=== PATIENT | female | born 1995 | race African-American/Black ===

== ENCOUNTER 2018-04-19 02:31 | Emergency (ER) | payer MEDICAID, MEDICARE ==
[~2018-04-19] VITALS: Ht 160 cm; Wt 99.8 kg
--- OUTSIDE RECORDS SUMMARY | 2018-04-19 02:34 | XMS REPORT | Clinical Summary ---
Author Author [facility] Address Unknown Phone Unavailable Care Team Providers [employer] Consultant Name Role Phone Meet Raines MD PCP Allergies Comments Active Allergy Reactions Severity Noted Date Throat swelling Tramadol Hives, Low 10/23/2016 Swelling, Rash Medications End Date Status Medication Sig Dispensed Refills Start Date Active ranitidine (ZANTAC) 150 Take 150 mg 0 MG tablet by mouth nightly. Active ferrous sulfate 325 (65 Take 325 mg 0 FE) MG tablet by mouth daily with breakfast. 06/10/2017 Discontinued NIFEdipine (PROCARDIA) 20 Take 1 120 capsule 0 MG capsule capsule (20 7 mg total) by mouth every 6 (six) hours for 30 days. 06/29/2017 HYDROcodone-acetaminophen Take 2 30 tablet 0 (NORCO) 7.5-325 mg per tablets by 8 tablet mouth every 6 (six) hours as needed for severe pain for up to 20 days. Max Daily Amount: 8 tablets 07/10/2017 ibuprofen (ADVIL,MOTRIN) Take 1 tablet 30 tablet 3 600 MG tablet (600 mg 8 total) by mouth every 6 (six) hours as needed for mild pain for up to 30 days. Active Problems Problem Noted Date Previous delivery affecting , antepartum 06/07/2017 Hyperemesis affecting , antepartum 12/01/2016 Pyelonephritis affecting in first trimester 12/01/2016 Occluded PICC line 11/30/2016 Hyperemesis gravidarum before end of 22 week gestation with dehydration 11/28/2016 12 weeks gestation of 11/28/2016 Pyelonephritis affecting 11/28/2016 Hyperemesis 11/22/2016 Pyelonephritis affecting in second trimester 11/16/2016 10 weeks gestation of 11/16/2016 Pyelonephritis 11/15/2016 state, incidental 02/27/2014 Resolved Problems Problem Noted Date Resolved Date 06/07/2017 06/07/2017 labor 05/08/2017 05/08/2017 Encounters Care Team Description Date Type Specialty Brigitte Fierro MD 06/07/2017 Anesthesia Obstetrics and Gynecology Event Karly Conner MD REPEAT SECTION 06/07/2017 Surgery Obstetrics and Gynecology Karly Conner MD 06/07/2017 Hospital Obstetrics and Gynecology - Encounter 06/10/2017 Karly Conner MD 06/07/2017 Documentation Obstetrics and Gynecology Karly Conner MD 05/27/2017 Hospital Obstetrics and Gynecology - Encounter 05/28/2017 Karly Conner MD 05/16/2017 Hospital Obstetrics and Gynecology Encounter Karly Conner MD state, incidental (Primary Dx) 05/12/2017 Hospital Obstetrics and Gynecology Encounter Karly Conner MD 05/10/2017 Hospital Obstetrics and Gynecology Encounter Karly Conner MD labor in third trimester without delivery (Primary Dx) 05/08/2017 Hospital Obstetrics and Gynecology - Encounter 05/10/2017 Karly Conner MD 05/07/2017 Hospital Obstetrics and Gynecology Encounter Keyla Urbina MD 05/07/2017 Documentation Obstetrics and Gynecology after 04/18/2017 Immunizations Name Dates Previously Given Next Due Tdap 06/07/2017 Social History Date Tobacco Use Types Packs/Day Years Used Never Smoker Smokeless Tobacco: Never Used Tobacco Cessation: Counseling Given: No Alcohol Use Drinks/Week oz/Week Comments No Sex Assigned at Date Recorded Not on file Industry Job Start Date Occupation Not on file Not on file Not on file Travel End Travel History Travel Start No recent travel history available. Last Filed Vital Signs Time Taken Vital Sign Reading 06/09/2017 8:32 PM ELECTRIC FURNACE OPERATOR Blood Pressure 123/75 06/09/2017 8:32 PM ELECTRIC FURNACE OPERATOR Pulse 94 06/09/2017 8:32 PM ELECTRIC FURNACE OPERATOR Temperature 36.2 C (97.1 F) 06/10/2017 7:21 AM ELECTRIC FURNACE OPERATOR Respiratory Rate 20 06/09/2017 8:32 PM ELECTRIC FURNACE OPERATOR Oxygen Saturation 99% - Inhaled Oxygen - Concentration 06/07/2017 10:10 AM ELECTRIC FURNACE OPERATOR Weight 107 kg (236 lb) 06/07/2017 10:10 AM ELECTRIC FURNACE OPERATOR Height 160 cm (5' 3") 06/07/2017 10:10 AM ELECTRIC FURNACE OPERATOR Body Mass Index 41.81 Plan of Treatment Health Maintenance Due Date Last Done Comments MMR VACCINES (1 of 1 - 1997 Standard series) VARICELLA VACCINES (1 of 2009 2 - 2-dose adolescent series) CHLAMYDIA SCREENING 2012 MENINGOCOCCAL VACCINE (1 2012 - 2-dose series) CERVICAL CANCER SCREENING 2017 INFLUENZA VACCINE 12/19/2017 HEPATITIS B VACCINES Aged Out No longer eligible based on patient's age to complete this topic IPV VACCINES Aged Out No longer eligible based on patient's age to complete this topic Procedures Comments Procedure Name Priority Date/Time Associated Diagnosis MANUAL DIFFERENTIAL STAT 06/08/2017 7:24 AM ELECTRIC FURNACE OPERATOR CBC WITH PLATELET AND STAT 06/08/2017 DIFFERENTIAL 7:24 AM ELECTRIC FURNACE OPERATOR ANESTHESIA SPINAL BLOCK Routine 06/07/2017 1:50 PM ELECTRIC FURNACE OPERATOR Procedure Note - Medina Olvera MD - 06/07/2017 1:11 PM ELECTRIC FURNACE OPERATOR Spinal Block Performed by: MEDINA OLVERA Authorized by: MEDINA OLVERA Start Time: 06/07/2017 1:06 PM End Time: 06/07/2017 1:33 PM Reason for Block: primary anesthetic Staff: Anesthesio logist: MEDINA OLVERA Performed by: Anesthesio logist patient identified , IV checked, site and side verified, risks and benefits discussed, procedure verified, surgical consent complete, patient position confirmed, monitors and equipment checked and pre-op evaluation complete TIme Out Performed: 06/07/2017 1:07 PM Spinal Block: Patient Position: Sitting Prep: Betadine and patient draped Monitoring : Blood pressure monitoring , continuous pulse oximetry and heart rate Approach: Midline Interspace : L3-4 Injection Technique: Single injection Needle: Needle type: pencan. Needle Gauge: 25 G Assessment : Coagulatio n status: Coagulatio n status verified Block assessment : No apparent complicati ons and patient tolerated procedure well Post procedure: Patient returned to supine position with left lateral displaceme nt DELIVERY, 06/07/2017 Encounter for supervision 12:30 PM ELECTRIC FURNACE OPERATOR of high risk in second trimester, antepartum Special Needs DUE DATE: 06/14/16GBS : NEGG/P: 3/2WKS: 32/5 SMEAR REVIEW STAT 06/07/2017 10:46 AM ELECTRIC FURNACE OPERATOR ZZESTIMATED GFR STAT 06/07/2017 10:46 AM ELECTRIC FURNACE OPERATOR URIC ACID LEVEL STAT 06/07/2017 10:46 AM ELECTRIC FURNACE OPERATOR FIBRINOGEN STAT 06/07/2017 10:46 AM ELECTRIC FURNACE OPERATOR PARTIAL THROMBOPLASTIN STAT 06/07/2017 TIME (PTT) 10:46 AM ELECTRIC FURNACE OPERATOR PROTHROMBIN TIME WITH INR STAT 06/07/2017 10:46 AM ELECTRIC FURNACE OPERATOR COMPREHENSIVE METABOLIC STAT 06/07/2017 PANEL 10:46 AM ELECTRIC FURNACE OPERATOR HIV 1, 2 ANTIBODY STAT 06/07/2017 10:46 AM ELECTRIC FURNACE OPERATOR TYPE AND SCREEN, STAT 06/07/2017 OBSTETRICAL PATIENT 10:46 AM ELECTRIC FURNACE OPERATOR SYPHILIS TREPONEMAL IGG STAT 06/07/2017 10:46 AM ELECTRIC FURNACE OPERATOR HEPATITIS B SURFACE STAT 06/07/2017 ANTIGEN 10:46 AM ELECTRIC FURNACE OPERATOR HC COMPLETE BLD COUNT STAT 06/07/2017 W/AUTO DIFF 10:46 AM ELECTRIC FURNACE OPERATOR URINALYSIS SCREEN AND STAT 06/07/2017 MICROSCOPY, WITH REFLEX 10:09 AM ELECTRIC FURNACE OPERATOR TO CULTURE GRAM STAIN STAT 06/07/2017 10:09 AM ELECTRIC FURNACE OPERATOR URINE CULTURE STAT 06/07/2017 10:09 AM ELECTRIC FURNACE OPERATOR AMNISURE Routine 05/28/2017 1:08 AM ELECTRIC FURNACE OPERATOR US BIOPHYSICAL STAT 05/28/2017 PROFILE 12:59 AM ELECTRIC FURNACE OPERATOR BETA STREP SCREEN CULTURE Routine 05/17/2017 WITH WOODRUFF BROTH AMNISURE Routine 05/16/2017 2:50 PM ELECTRIC FURNACE OPERATOR MAGNESIUM, THERAPEUTIC Timed 05/09/2017 11:45 AM ELECTRIC FURNACE OPERATOR MAGNESIUM, THERAPEUTIC Timed 05/09/2017 6:11 AM ELECTRIC FURNACE OPERATOR MAGNESIUM, THERAPEUTIC Timed 05/08/2017 11:28 PM ELECTRIC FURNACE OPERATOR MAGNESIUM, THERAPEUTIC STAT 05/08/2017 6:24 PM ELECTRIC FURNACE OPERATOR AMNISURE Routine 05/08/2017 1:20 PM ELECTRIC FURNACE OPERATOR US LIMITED STAT 05/08/2017 12:20 PM ELECTRIC FURNACE OPERATOR SMEAR REVIEW Routine 05/08/2017 11:30 AM ELECTRIC FURNACE OPERATOR ZZESTIMATED GFR Routine 05/08/2017 11:30 AM ELECTRIC FURNACE OPERATOR URIC ACID LEVEL Routine 05/08/2017 11:30 AM ELECTRIC FURNACE OPERATOR FIBRINOGEN Routine 05/08/2017 11:30 AM ELECTRIC FURNACE OPERATOR PARTIAL THROMBOPLASTIN Routine 05/08/2017 TIME (PTT) 11:30 AM ELECTRIC FURNACE OPERATOR PROTHROMBIN TIME WITH INR Routine 05/08/2017 11:30 AM ELECTRIC FURNACE OPERATOR COMPREHENSIVE METABOLIC Routine 05/08/2017 PANEL 11:30 AM ELECTRIC FURNACE OPERATOR HC COMPLETE BLD COUNT Routine 05/08/2017 W/AUTO DIFF 11:30 AM ELECTRIC FURNACE OPERATOR TYPE AND SCREEN, Routine 05/08/2017 OBSTETRICAL PATIENT 11:30 AM ELECTRIC FURNACE OPERATOR URINE DRUGS OF ABUSE STAT 05/08/2017 SCREEN 11:15 AM ELECTRIC FURNACE OPERATOR URINALYSIS SCREEN AND Routine 05/08/2017 MICROSCOPY, WITH REFLEX 11:15 AM ELECTRIC FURNACE OPERATOR TO CULTURE GRAM STAIN Routine 05/08/2017 11:15 AM ELECTRIC FURNACE OPERATOR URINE CULTURE Routine 05/08/2017 11:15 AM ELECTRIC FURNACE OPERATOR after 04/18/2017 Results * Manual differential (06/08/2017 7:24 AM ELECTRIC FURNACE OPERATOR) Manual differential PERFORMED [facility]IC[facility] Neutrophils 92.0 (H) 36.0 - 66.0 % [facility] MEDICINE Lymphocytes 5.0 (L) 24.0 - 44.0 % [facility]OMIC MEDICINE Monocytes 2.0 0.0 - 6.0 % [facility] AND GENOMIC MEDICINE Eosinophils 1.0 0.0 - 6.0 % [facility]IC MEDICINE Basophils 0.0 0.0 - 1.2 % [facility] AND [facility]OMIC MEDICINE Metamyelocytes 0 0 - 1 % [facility]IC [facility] Promyelocytes 0 0 - 1 % [facility] Platelet slide review Negar adequate [facility] AND [facility]INE Anisocytosis Moderate [facility] AND [facility]OMIC MEDICINE Polychromasia Slight [facility] PATHOLOGY AND GENOMIC MEDICINE Tear drop cells Rare [facility] AND GENOMIC MEDICINE Schistocytes Rare [facility] AND GENOMIC MEDICINE Ovalocytes Moderate [facility]OLOGY AND GENOMIC MEDICINE Performing Organization Address City/State/Zipcode Phone Number [place] [address] [place] [address] PATHOLOGY AND GENOMIC MEDICINE * CBC with platelet and differential (06/08/2017 7:24 AM ELECTRIC FURNACE OPERATOR) Only the most recent of 3 results within the time period is included. WBC 10.5 4.2 - 11.0 k/uL [facility]IC MEDICINE RBC 3.38 (L) 4.04 - 5.86 m/uL [facility]OMIC MEDICINE HGB 6.0 (LL) 11.5 - 15.3 g/dL [facility] Comment: PATHOLOGY AND REPEAT HGB=6.0 GENOMIC MEDICINE Results called to and read back by KARIN BURGER OB at07:56006/08/2017 WEB HCT 21.0 (L) 34.0 - 45.0 % [facility]IC MEDICINE MCV 62.1 (L) 80.0 - 98.0 fL [facility]IC MEDICINE MCH 17.8 (L) 27.0 - 34.0 pg [facility] AND GENOMIC MEDICINE MCHC 28.6 (L) 31.5 - 36.5 g/dL [facility] AND GENOMIC MEDICINE RDW - SD 42.1 37.0 - 51.0 fL [facility]IC MEDICINE MPV 9.2 7.4 - 10.4 fL [facility] AND [facility]IC MEDICINE Platelet count 214 150 - 400 k/uL [facility]OMIC MEDICINE Nucleated RBC 0.00 /100 WBC [facility] AND GENOMIC MEDICINE Neutrophils 92.0 (H) 36.0 - 66.0 % [facility] AND GENOMIC MEDICINE Lymphocytes 5.0 (L) 24.0 - 44.0 % [facility] AND GENOMIC MEDICINE Monocytes 2.0 0.0 - 6.0 % [facility] AND GENOMIC MEDICINE Eosinophils 1.0 0.0 - 6.0 % [facility] AND GENOMIC MEDICINE Basophils 0.0 0.0 - 1.2 % [facility] AND GENOMIC MEDICINE Specimen Blood Performing Organization Address City/[facility] Phone Number [facility] [address] [place] [address] PATHOLOGY AND GENOMIC MEDICINE * Syphilis treponemal IgG (06/07/2017 10:46 AM ELECTRIC FURNACE OPERATOR) Syphilis treponemal IgG Non-reactiveComment: Non-reactive [facility] DEPARTMENT OF Non-reactive: No serological PATHOLOGY AND evidence of Syphilis infection GENOMIC [facility] Specimen Serum Performing Organization Address City/[facility] Hospital[facility] Phone Number [facility] [address] [place] [address] PATHOLOGY AND GENOMIC MEDICINE * Smear review (06/07/2017 10:46 AM ELECTRIC FURNACE OPERATOR) Only the most recent of 2 results within the time period is included. Platelet slide review Negar adequate [facility] AND GENOMIC MEDICINE Anisocytosis 2+ (A) [facility] AND GENOMIC MEDICINE Polychromasia 1+ [facility] AND GENOMIC MEDICINE Tear drop cells Occasional [facility] AND GENOMIC MEDICINE Schistocytes Occasional [facility]OLOG[facility] AND GENOMIC MEDICINE Ovalocytes 1+ [facility] AND GENOMIC MEDICINE Enlarged platelets 1+ [facility] AND GENOMIC MEDICINE Giant platelets Occasional [facility] AND GENOMIC MEDICINE Elliptocytes Occasional [facility] AND GENOMIC MEDICINE Toxic granulation Slight [facility] AND GENOMIC MEDICINE Performing Organization Address City/[facility] Hospital[facility] Phone Number [facility] [address] [place] [address] PATHOLOGY AND GENOMIC MEDICINE * Type and screen, obstetrical patient (06/07/2017 10:46 AM ELECTRIC FURNACE OPERATOR) Only the most recent of 2 results within the time period is included. ABO grouping O [facility] GENOMIC MEDICINE Rh type POS [facility] AND GENOMIC MEDICINE Antibody screen (gel) NEG [facility]OLOG[facility] AND GENOMIC MEDICINE Specimen Blood Performing Organization Address City/[facility] Hospitalcode Phone Number [place] [address] [place] [address] PATHOLOGY AND GENOMIC MEDICINE * Estimated GFR (06/07/2017 10:46 AM ELECTRIC FURNACE OPERATOR) Only the most recent of 2 results within the time period is included. GFR Non Af Amer >90 mL/min/1.73 m2 [facility] PATH[facility] AND GENOMIC MEDICINE GFR Af Amer >90 mL/min/1.73 m2 [facility] Comment: PATHOLOGY AND Chronic kidney disease: <60 GENOMIC MEDICINE mL/min/1.73m2 Kidney failure: <15 mL/min/1.73m2 The estimated GFR is calculated from the IDMS-traceable Modification of Diet in Renal Disease Equation. The accuracy of the calculation is poor when the creatinine is normal. Calculated values >90 mL/min/1.73m2 are not reported. This equation has not been validated in children (<18 years), women, the elderly (>70 years), or ethnic groups other than Caucasians and Americans. Specimen Plasma specimen Performing Organization Address City/[facility] Hospital[facility] Phone Number [facility] [address] [place] [address] [place] [address] PATHOLOGY AND [facility] * HIV 1, 2 antibody (06/07/2017 10:46 AM ELECTRIC FURNACE OPERATOR) HIV 1, 2 antibody Non-Reactive Non-reactive [facility] Comment: PATHOLOGY AND Starting from August 17 2015, [facility] 4th generation HIV screening and confirmation assays are in use at [facility], consistent with the CDC-recommended algorithm. The screening test detects antibodies to HIV-1, HIV-2 and the p24 antigen. Positive screening results will be automatically reflexed to a HIV-1/HIV-2 differentiation assay. Indeterminant HIV-1 results will be further automatically reflexed to a nucleic acid test for detection of acute infection. Western blot will no longer be performed as a confirmation test. For a quick reference guide on the testing algorithm, please refer to: http://stacks.cdc.gov/view/cdc /74749. Specimen Blood Performing Organization Address City/[facility] Hospitalcode [place] [address] PATHOLOGY AND GENOMIC MEDICINE * Hepatitis B surface antigen (06/07/2017 10:46 AM ELECTRIC FURNACE OPERATOR) Hepatitis B surface Ag Non-reactive Non-reactive [facility] PATHOLOGY AND [facility] Specimen Blood Performing Organization Address [facility] Hospitalcode [place] [address] PATHOLOGY AND [employer] [facility] * Partial thromboplastin time, activated (06/07/2017 10:46 AM ELECTRIC FURNACE OPERATOR) Only the most recent of 2 results within the time period is included. PTT 30.7 23.0 - 36.0 sec [facility] Comment: PATHOLOGY AND PTT therapeutic range for GENOMIC MEDICINE unfractionated heparin is 61.0-112.0 seconds which corresponds to Anti-Xa 0.3-0.7 U/ml. Note:Change in Panic Value The PTT Panic Value is changing from 110 sec. to 100 sec. due to new instrumentation and reagents. Correlation studies have been performed to validate this result. Specimen Blood Performing Organization Address [facility] [place] [address] PATHOLOGY AND [employer] [facility] * Prothrombin time with INR (06/07/2017 10:46 AM ELECTRIC FURNACE OPERATOR) Only the most recent of 2 results within the time period is included. Prothrombin time 14.4 12.0 - 15.0 sec [facility] PATHOLOGY AND [facility] INR 1.11 0.92 - 1.12 [facility] Comment: PATHOLOGY AND For patients on anticoagulant GENOMIC MEDICINE therapy, reference ranges below: Indication: INR Value Treatment of Venous Thrombosis, 2.0-3.0 pulmonary emboli, or prophylaxis of a venous thrombosis, or systemic emboli. High dose, high risk patients 3.0-4.5 with mechanical valves. NOTE:INR values over 3.0 are sometimes associated with gastrointestinal hemorrhage, especially values over 4.0. Specimen Blood Performing Organization Address [facility]/Zipcode Phone Number [place] [phone] [place] [address] PATHOLOGY AND GENOMIC MEDICINE * Fibrinogen (06/07/2017 10:46 AM ELECTRIC FURNACE OPERATOR) Only the most recent of 2 results within the time period is included. Fibrinogen 638 (H) 200 - 450 mg/dL [facility] PATHOLOGY AND GENOMIC MEDICINE Specimen Blood Performing Organization Address City/[facility]/Zipcode Phone Number [place] [address] [place] [address] PATHOLOGY AND [facility] * Uric acid level (06/07/2017 10:46 AM ELECTRIC FURNACE OPERATOR) Only the most recent of 2 results within the time period is included. Uric acid 3.5 2.4 - 5.1 mg/dL [facility] PATHOLOGY AND [facility] Specimen Plasma specimen Performing Organization Address City/[facility]code Phone Number [place] [address] [place] [address] PATHOLOGY AND [facility] * Comprehensive metabolic panel (06/07/2017 10:46 AM ELECTRIC FURNACE OPERATOR) Only the most recent of 2 results within the time period is included. Sodium 137 135 - 150 mEq/L [facility] AND GENOMIC MEDICINE Potassium 3.4 (L) 3.5 - 5.0 mEq/L [facility] PATHOLOGY AND GENOMIC MEDICINE Chloride 106 100 - 109 mEq/L [facility] PATHOLOGY AND GENOMIC MEDICINE CO2 21 (L) 24 - 32 mmol/L [facility] PATHOLOGY AND GENOMIC MEDICINE Anion gap 10 7 - 15 mEq/L [facility] Comment: PATHOLOGY AND Starting from August [facility] , anion gap calculation no longer incorporates potassium. Please note the change. BUN 7 7 - 18 mg/dL [facility] PATHOLOGY AND GENOMIC MEDICINE Creatinine 0.5 (L) 0.8 - 1.5 mg/dL [facility] PATHOLOGY AND GENOMIC MEDICINE Glucose 67 65 - 100 mg/dL [facility] PATHOLOGY AND GENOMIC MEDICINE Calcium 8.0 (L) 8.6 - 10.7 mg/dL [facility] PATHOLOGY AND GENOMIC MEDICINE Protein 6.2 (L) 6.3 - 8.2 g/dL [facility] PATHOLOGY AND GENOMIC MEDICINE Albumin 2.2 (L) 3.2 - 5.0 g/dL [facility] PATHOLOGY AND GENOMIC MEDICINE A/G ratio 0.6 (L) 0.7 - 3.8 [facility] PATHOLOGY AND GENOMIC MEDICINE Alkaline phosphatase 106 30 - 120 U/L [facility] PATHOLOGY AND GENOMIC MEDICINE AST 19 15 - 37 U/L [facility] PATHOLOGY AND GENOMIC MEDICINE ALT 12 (L) 30 - 65 U/L [facility] PATHOLOGY AND GENOMIC MEDICINE Total bilirubin 0.3 0.2 - 1.2 mg/dL [facility] PATHOLOGY AND GENOMIC MEDICINE Specimen Plasma specimen Performing Organization Address City/State/[facility] Hospital[facility] Phone Number [facility] [address] [place] [address] PATHOLOGY AND GENOMIC MEDICINE * Urinalysis screen and microscopy, with reflex to culture (06/07/2017 10:09 AM ELECTRIC FURNACE OPERATOR) Only the most recent of 2 results within the time period is included. Specimen site Clean catch [facility] PATHOLOGY AND GENOMIC MEDICINE Color, UA Debbie [facility] PATHOLOG[facility] AND GENOMIC MEDICINE Appearance, UA Cloudy [facility] PATHOLOGY AND GENOMIC MEDICINE Specific gravity, UA 1.026 1.001 - 1.035 [facility] PATHOLOGY AND GENOMIC MEDICINE pH, UA 5.0 5.0 - 8.5 [facility] PATHOLOGY AND GENOMIC MEDICINE Protein, UA 1+ (A) Negative [facility] PATHOLOGY AND GENOMIC MEDICINE Glucose, UA Negative Negative [facility] PATHOLOGY AND GENOMIC MEDICINE Ketones, UA Negative Negative [facility] PATHOLOGY AND GENOMIC MEDICINE Bilirubin, UA Negative Negative [facility] PATHOLOGY AND GENOMIC MEDICINE Blood, UA Negative Negative [facility] PATHOLOGY AND GENOMIC MEDICINE Nitrite, UA Negative Negative [facility] PATHOLOGY AND GENOMIC MEDICINE Urobilinogen, UA 2.0 (A) <2.0 [facility] PATHOLOGY AND GENOMIC MEDICINE Leukocyte esterase, UA Large (A) Negative [facility] PATHOLOGY AND GENOMIC MEDICINE Epithelial cells, UA Many /HPF [facility] DEPARTMENT OF PATHOLOGY AND GENOMIC MEDICINE WBC, UA 32 (H) 0 - 5 /HPF [facility]OLOGY AND GENOMIC MEDICINE RBC, UA 4 0 - 5 /HPF [facility] OF PATHOLOGY AND GENOMIC MEDICINE Bacteria, UA Trace None seen [facility] OF PATHOLOGY AND GENOMIC MEDICINE Yeast, UA None seen [facility] OF PATHOLOGY AND GENOMIC MEDICINE Yeast with pseudohyphae, None seen [facility] OF PATHOLOGY AND GENOMIC MEDICINE Hyaline casts, UA 2 /LPF [facility] DE[facility]MENT OF PATHOLOGY AND GENOMIC MEDICINE Specimen Urine Performing Organization Address City/[facility]/Zipcode Phone Number [facility] DEPARTMENT OF [address] [place] [address] PATHOLOGY AND GENOMIC MEDICINE * Gram stain (06/07/2017 10:09 AM ELECTRIC FURNACE OPERATOR) Only the most recent of 2 results within the time period is included. Gram stain result No WBC's [facility] DEPARTMENT OF Many Gram positive rods PATHOLOGY AND Comment: GENOMIC MEDICINE Specimen Information Specimen Source: Urine Specimen Site: Clean catch Specimen Urine Performing Organization Address [facility] Phone Number [facility] DEPARTMENT OF [address] [place] [address] PATHOLOGY AND GENOMIC MEDICINE * Urine culture (06/07/2017 10:09 AM ELECTRIC FURNACE OPERATOR) Only the most recent of 2 results within the time period is included. Urine culture isolate Mixed Gram positive mackenzie [facility] DEPARTMENT OF 10-2 cfu/ml PATHOLOGY AND (A) GENOMIC MEDICINE Comment: Specimen Information Specimen Source: Urine Specimen Site: Clean catch Specimen Urine Performing Organization Address [facility] Phone Number [facility] DEPARTMENT OF [address] [place] [address] PATHOLOGY AND GENOMIC MEDICINE * Amnisure (05/28/2017 1:08 AM ELECTRIC FURNACE OPERATOR) Only the most recent of 3 results within the time period is included. Amnisure, POC NEGATIVE [facility]MENT OF PATHOLOGY AND GENOMIC MEDICINE Specimen Amniotic fluid Performing Organization Address [facility] Phone Number [facility] [place] [address] [place] [address]. [place] [address] PATHOLOGY AND GENOMIC MEDICINE * US Biophysical Profile (05/28/2017 12:59 AM ELECTRIC FURNACE OPERATOR) Narrative Performed At EXAMINATION:US BIOPHYSICAL PROFILE [facility] CLINICAL HISTORY:pt c o leaking fluid varsha COMPARISON:None. TECHNIQUE: biophysical profile ultrasound was performed. Transabdominal images were obtained. FINDINGS: The biophysical profile score is 8/8. breathing, movement, and tone are identified. The amniotic fluid index is 12.52 cm. The largest pocket measures 4.2 cm in the right lower quadrant. heart rate is measured at 121.48 bpm. Umbilical cord peaks systolic end diastolic ratio is 2.3. The fetus is in cephalic presentation. The placenta is posterior in location. IMPRESSION: biophysical profile score is 8 out of a possible 8. [id number] Procedure Note Interface, Radiology Results Incoming - 05/28/2017 1:05 AM ELECTRIC FURNACE OPERATOR EXAMINATION: US BIOPHYSICAL PROFILE CLINICAL HISTORY: pt c o leaking fluid varsha COMPARISON: None. TECHNIQUE: biophysical profile ultrasound was performed. Transabdominal images were obtained. FINDINGS: The biophysical profile score is 8/8. breathing, movement, and tone are identified. The amniotic fluid index is 12.52 cm. The largest pocket measures 4.2 cm in the right lower quadrant. heart rate is measured at 121.48 bpm. Umbilical cord peaks systolic end diastolic ratio is 2.3. The fetus is in cephalic presentation. The placenta is posterior in location. IMPRESSION: biophysical profile score is 8 out of a possible 8. [facility]-[id number] Performing Organization Address City/[facility]/Zipcode Phone Number [facility] [address] [place] [address] * Beta strep screen culture with woodruff broth (05/17/2017) Strep gp B culture neg EXTERNAL LAB NON-INTERFACED Specimen Vaginal Performing Organization Address City/[facility] Phone Number EXTERNAL LAB NON-INTERFACED * Magnesium, therapeutic (05/09/2017 11:45 AM ELECTRIC FURNACE OPERATOR) Only the most recent of 4 results within the time period is included. Magnesium, therapeutic 6.5 4.5 - 7.9 [facility] OF PATHOLOGY AND GENOMIC MEDICINE Specimen Plasma specimen Performing Organization Address City/[facility] Phone Number [facility] DE[facility]MENT OF [address] [place] [id number] PATHOLOGY AND GENOMIC MEDICINE * US Limited (05/08/2017 12:20 PM ELECTRIC FURNACE OPERATOR) Narrative Performed At EXAMINATION:US LIMITED [facility] INDICATION:Premature labor. COMPARISON: 02/28/2017 IMPRESSION: 1.Single live uterine gestation with estimated gestational age of 36 weeks and 5 days by biometry. 2.Estimated weight of 3017 g or 6 lbs. 10 oz. within the 93rd percentile. 3. heart rate is 127 bpm, which is normal. 4.Systolic to diastolic ratio in the umbilical artery of 2.3. 5. presentation is cephalic. Placenta is fundal without evidence of a retroplacental hematoma. 6.Amniotic fluid index is appropriate measuring 10.9 cm. 7.Cervix is not well visualized. Procedure Note Interface, Radiology Results Incoming - 05/08/2017 12:36 PM ELECTRIC FURNACE OPERATOR EXAMINATION: US LIMITED INDICATION: Premature labor. COMPARISON: 02/28/2017 IMPRESSION: 1. Single live uterine gestation with estimated gestational age of 36 weeks and 5 days by biometry. 2. Estimated weight of 3017 g or 6 lbs. 10 oz. within the 93rd percentile. 3. heart rate is 127 bpm, which is normal. 4. Systolic to diastolic ratio in the umbilical artery of 2.3. 5. presentation is cephalic. Placenta is fundal without evidence of a retroplacental hematoma. 6. Amniotic fluid index is appropriate measuring 10.9 cm. 7. Cervix is not well visualized. Performing Organization Address City/[facility]/Zipcode Phone Number [facility] [address] [place] [address] * Urine drugs of abuse screen (05/08/2017 11:15 AM ELECTRIC FURNACE OPERATOR) Amphetamine screen, urine NEG [facility] DE[facility]MENT OF PATHOLOGY AND GENOMIC MEDICINE Barbiturate screen, urine NEG [facility] DE[facility]MENT OF PATHOLOGY AND GENOMIC MEDICINE Benzodiazepine screen, NEG [facility] DEPARTMENT OF urine PATHOLOGY AND GENOMIC MEDICINE Cocaine screen, urine NEG [facility]MENT OF PATHOLOGY AND GENOMIC MEDICINE Methadone screen, urine NEG [facility]MENT OF PATHOLOGY AND GENOMIC MEDICINE Opiates screen, urine NEG [facility] DE[facility]MENT OF PATHOLOGY AND GENOMIC MEDICINE Phencyclidine screen, NEG [facility] DEPARTMENT OF urine PATHOLOGY AND GENOMIC MEDICINE Cannabinoid screen, urine NEG [facility] DEPARTMENT OF Comment: PATHOLOGY AND Drug screen minimum GENOMIC MEDICINE concentration of detectability Amphetamines 1000 ng/mL Methamphetamines 1000 ng/mL Barbiturates 300 ng/mL Benzodiazepines 300 ng/mL Cocaine 300 ng/mL Methadone 300 ng/mL Opiates 300 ng/mL Phencyclidine 25 ng/mL Cannabinoids 50 ng/mL Tricyclics 1000 ng/mL Negative test results indicates presumptive evidence of lack of clinically significant drug concentration in this urine specimen. Positive test results are presumptive evidence of clinically significant drug concentration in this urine specimen. Testing performed for medical purposes only. Specimen Urine Performing Organization Address City/[facility]/Zipcode Phone Number [facility] DE[facility] [place] [address] [place] [address] PATHOLOGY AND GENOMIC MEDICINE after 04/18/2017 Insurance Payer Benefit Subscriber ID Type Phone Address Plan / Group [employer] [facility] xxxxxxxxx O [facility] Advance Directives Patient has advance care planning documents, and code status on file. For more i nformation, please contact: Jamey Hanson [address] [place] [address] Date Inactivated Comments Code Status Date Activated 05/16/2017 8:17 PM Full Code 05/16/2017 2:34 PM Code Status decision reached by: Patient 05/10/2017 9:01 PM Full Code 05/10/2017 4:36 PM Code Status decision reached by: Patient 05/07/2017 11:09 AM Full Code 05/07/2017 6:08 AM Code Status decision reached by: Patient 03/01/2017 1:09 AM Full Code 02/28/2017 7:27 PM Code Status decision reached by: Patient 02/26/2017 8:17 PM Full Code 02/26/2017 4:04 PM Code Status decision reached by: Patient
--- OUTSIDE RECORDS SUMMARY | 2018-04-19 02:34 | XMS REPORT ---
Author Author [facility] Address Unknown Phone Unavailable Care Team Providers Care Manager Tax Name Role Phone Unavailable Unavailable Problems This patient has no known problems. Allergies, Adverse Reactions, Alerts This patient has no known allergies or adverse reactions. Medications This patient has no known medications.
--- NOTE | 2018-04-19 03:45 | Diagnostic Imaging Report ---
EXAM: CT ABDOMEN AND PELVIS without IV CONTRAST INDICATION: Fall on area of prior hernia repair COMPARISON: None TECHNIQUE: The abdomen and pelvis were scanned using a multidetector helical scanner. Coronal and sagittal reformations were obtained. Dose modulation, iterative reconstruction, and/or weight based adjustment of the mA/kV was utilized to reduce the radiation dose to as low as reasonably achievable. Routine protocol performed. IV Contrast: None Oral Contrast: None CTDIvol has been reviewed. It is below the limits set by the Radiation Protocol Committee (RPC). FINDINGS: LOWER THORAX: No consolidations LIVER: No masses BILIARY: Cholecystectomy. No ductal dilation. SPLEEN: No masses PANCREAS: No masses ADRENALS: No nodules RIGHT KIDNEY: No nephroureterolithiasis or hydronephrosis. LEFT KIDNEY: No nephroureterolithiasis or hydronephrosis. GI TRACT: No wall thickening or obstruction. Appendix not visualized. VESSELS: Normal PERITONEUM/RETROPERITONEUM: Small amount of free pelvic fluid consistent with physiologic fluid. No free peritoneal air. LYMPH NODES: No lymphadenopathy REPRODUCTIVE ORGANS: Normal BLADDER: Decompressed SOFT TISSUES: Prior ventral hernia repair with mesh, now with large hernia centered just above the umbilicus. The hernia contains fat and portions of the distal ileum. The hernia sac measures 8.4 x 13 x 5 cm (sagittal x AP x transverse) and the defect neck is approximately 5.5 cm wide in sagittal plane and 3 cm in transverse plane. Mild fat stranding in the subcutaneous tissues around the hernia sac. BONES: No suspicious bone lesions. IMPRESSION: Prior midline ventral hernia repair with mesh, now with large complex supraumbilical hernia containing fat and small bowel. No evidence of bowel obstruction. Signed by: Dr. Petra Baptiste M.D. on 04/19/2018 3:42 AM
== END 2018-04-19 03:59 | disposition home or self-care (01) ==
LOC: FSED 02:31
DX: R10.33 Periumbilical pain (principal); D64.9 Anemia, unspecified
CPT/HCPCS: 74176; 81003; 81025; 99284

== ENCOUNTER 2018-04-23 23:31 | Inpatient (IN) | payer MEDICAID, MEDICARE ==
[~2018-04-23] VITALS: Ht 152.4 cm; Wt 104.0 kg
--- OUTSIDE RECORDS SUMMARY | 2018-04-23 23:34 | XMS REPORT | Clinical Summary ---
Author Author [employer] [facility] [employer] Address Unknown Phone Unavailable Care Team Providers [facility] Office Supervisor Name Role Phone Meet Raines MD PCP [...] MD 05/07/2017 Documentation Obstetrics and Gynecology after 04/22/2017 Immunizations Name Dates Previously Given Next Due [...] Taken Vital Sign Reading 06/09/2017 8:32 PM SALES AND LEASING CONSULTANT Blood Pressure 123/75 06/09/2017 8:32 PM SALES AND LEASING CONSULTANT Pulse 94 06/09/2017 8:32 PM SALES AND LEASING CONSULTANT Temperature 36.2 C (97.1 F) 06/10/2017 7:21 AM SALES AND LEASING CONSULTANT Respiratory Rate 20 06/09/2017 8:32 PM SALES AND LEASING CONSULTANT Oxygen Saturation 99% - Inhaled Oxygen - Concentration 06/07/2017 10:10 AM SALES AND LEASING CONSULTANT Weight 107 kg (236 lb) 06/07/2017 10:10 AM SALES AND LEASING CONSULTANT Height 160 cm (5' 3") 06/07/2017 10:10 AM SALES AND LEASING CONSULTANT Body Mass Index 41.81 Plan of Treatment [...] Diagnosis MANUAL DIFFERENTIAL STAT 06/08/2017 7:24 AM SALES AND LEASING CONSULTANT CBC WITH PLATELET AND STAT 06/08/2017 DIFFERENTIAL 7:24 AM SALES AND LEASING CONSULTANT ANESTHESIA SPINAL BLOCK Routine 06/07/2017 1:50 PM SALES AND LEASING CONSULTANT Procedure Note - Medina Olvera MD - 06/07/2017 1:11 PM SALES AND LEASING CONSULTANT Spinal Block Performed by: MEDINA OLVERA Authorized [...] DELIVERY, 06/07/2017 Encounter for supervision 12:30 PM SALES AND LEASING CONSULTANT of high risk in second trimester, antepartum Special Needs DUE DATE: 06/14/16GBS : NEGG/P: 3/2WKS: 32/5 SMEAR REVIEW STAT 06/07/2017 10:46 AM SALES AND LEASING CONSULTANT ZZESTIMATED GFR STAT 06/07/2017 10:46 AM SALES AND LEASING CONSULTANT URIC ACID LEVEL STAT 06/07/2017 10:46 AM SALES AND LEASING CONSULTANT FIBRINOGEN STAT 06/07/2017 10:46 AM SALES AND LEASING CONSULTANT PARTIAL THROMBOPLASTIN STAT 06/07/2017 TIME (PTT) 10:46 AM SALES AND LEASING CONSULTANT PROTHROMBIN TIME WITH INR STAT 06/07/2017 10:46 AM SALES AND LEASING CONSULTANT COMPREHENSIVE METABOLIC STAT 06/07/2017 PANEL 10:46 AM SALES AND LEASING CONSULTANT HIV 1, 2 ANTIBODY STAT 06/07/2017 10:46 AM SALES AND LEASING CONSULTANT TYPE AND SCREEN, STAT 06/07/2017 OBSTETRICAL PATIENT 10:46 AM SALES AND LEASING CONSULTANT SYPHILIS TREPONEMAL IGG STAT 06/07/2017 10:46 AM SALES AND LEASING CONSULTANT HEPATITIS B SURFACE STAT 06/07/2017 ANTIGEN 10:46 AM SALES AND LEASING CONSULTANT HC COMPLETE BLD COUNT STAT 06/07/2017 W/AUTO DIFF 10:46 AM SALES AND LEASING CONSULTANT URINALYSIS SCREEN AND STAT 06/07/2017 MICROSCOPY, WITH REFLEX 10:09 AM SALES AND LEASING CONSULTANT TO CULTURE GRAM STAIN STAT 06/07/2017 10:09 AM SALES AND LEASING CONSULTANT URINE CULTURE STAT 06/07/2017 10:09 AM SALES AND LEASING CONSULTANT AMNISURE Routine 05/28/2017 1:08 AM SALES AND LEASING CONSULTANT US BIOPHYSICAL STAT 05/28/2017 PROFILE 12:59 AM SALES AND LEASING CONSULTANT BETA STREP SCREEN CULTURE Routine 05/17/2017 WITH WOODRUFF BROTH AMNISURE Routine 05/16/2017 2:50 PM SALES AND LEASING CONSULTANT MAGNESIUM, THERAPEUTIC Timed 05/09/2017 11:45 AM SALES AND LEASING CONSULTANT MAGNESIUM, THERAPEUTIC Timed 05/09/2017 6:11 AM SALES AND LEASING CONSULTANT MAGNESIUM, THERAPEUTIC Timed 05/08/2017 11:28 PM SALES AND LEASING CONSULTANT MAGNESIUM, THERAPEUTIC STAT 05/08/2017 6:24 PM SALES AND LEASING CONSULTANT AMNISURE Routine 05/08/2017 1:20 PM SALES AND LEASING CONSULTANT US LIMITED STAT 05/08/2017 12:20 PM SALES AND LEASING CONSULTANT SMEAR REVIEW Routine 05/08/2017 11:30 AM SALES AND LEASING CONSULTANT ZZESTIMATED GFR Routine 05/08/2017 11:30 AM SALES AND LEASING CONSULTANT URIC ACID LEVEL Routine 05/08/2017 11:30 AM SALES AND LEASING CONSULTANT FIBRINOGEN Routine 05/08/2017 11:30 AM SALES AND LEASING CONSULTANT PARTIAL THROMBOPLASTIN Routine 05/08/2017 TIME (PTT) 11:30 AM SALES AND LEASING CONSULTANT PROTHROMBIN TIME WITH INR Routine 05/08/2017 11:30 AM SALES AND LEASING CONSULTANT COMPREHENSIVE METABOLIC Routine 05/08/2017 PANEL 11:30 AM SALES AND LEASING CONSULTANT HC COMPLETE BLD COUNT Routine 05/08/2017 W/AUTO DIFF 11:30 AM SALES AND LEASING CONSULTANT TYPE AND SCREEN, Routine 05/08/2017 OBSTETRICAL PATIENT 11:30 AM SALES AND LEASING CONSULTANT URINE DRUGS OF ABUSE STAT 05/08/2017 SCREEN 11:15 AM SALES AND LEASING CONSULTANT URINALYSIS SCREEN AND Routine 05/08/2017 MICROSCOPY, WITH REFLEX 11:15 AM SALES AND LEASING CONSULTANT TO CULTURE GRAM STAIN Routine 05/08/2017 11:15 AM SALES AND LEASING CONSULTANT URINE CULTURE Routine 05/08/2017 11:15 AM SALES AND LEASING CONSULTANT after 04/22/2017 Results * Manual differential (06/08/2017 7:24 AM SALES AND LEASING CONSULTANT) Manual differential PERFORMED [facility] OF PATHOLOGY AND GENOMIC MEDICINE Neutrophils 92.0 (H) 36.0 - 66.0 % [facility] OF PATHOLOGY AND GENOMIC MEDICINE Lymphocytes 5.0 (L) 24.0 - 44.0 % [facility]PART[facility] OF PATHOLOGY AND GENOMIC MEDICINE Monocytes 2.0 0.0 - 6.0 % [facility]PARTMENT OF PATHOLOGY AND GENOMIC MEDICINE Eosinophils 1.0 0.0 - 6.0 % [facility] OF PATHOLOGY AND GENOMIC MEDICINE Basophils 0.0 0.0 - 1.2 % [facility] DEPARTMENT OF PATHOLOGY AND GENOMIC MEDICINE Metamyelocytes 0 0 - 1 % [facility] OF PATHOLOGY AND GENOMIC MEDICINE Promyelocytes 0 0 - 1 % [facility] OF PATHOLOGY AND GENOMIC MEDICINE Platelet slide review Negar adequate [facility] OF PATHOLOGY AND GENOMIC MEDICINE Anisocytosis Moderate [facility] OF PATHOLOGY AND GENOMIC MEDICINE Polychromasia Slight [facility]PARTMENT OF PATHOLOGY AND GENOMIC MEDICINE Tear drop cells Rare [facility] OF PATHOLOGY AND GENOMIC MEDICINE Schistocytes Rare [facility] OF PATHOLOGY AND GENOMIC MEDICINE Ovalocytes Moderate [facility] DEPARTMENT OF PATHOLOGY AND GENOMIC MEDICINE Performing Organization Address City/State/Zipcode Phone Number [place] [id number] [place] [address] PATHOLOGY AND GENOMIC MEDICINE * CBC with platelet and differential (06/08/2017 7:24 AM SALES AND LEASING CONSULTANT) Only the most recent of 3 results within the time period is included. WBC 10.5 4.2 - 11.0 k/uL [facility] OF PATHOLOGY AND GENOMIC MEDICINE RBC 3.38 (L) 4.04 - 5.86 m/uL [facility] OF PATHOLOGY AND GENOMIC MEDICINE HGB 6.0 (LL) 11.5 - 15.3 g/dL [facility]PART[facility] OF Comment: PATHOLOGY AND REPEAT HGB=6.0 GENOMIC MEDICINE Results called to and read back by KARIN BURGER OB at07:56006/08/2017 WEB HCT 21.0 (L) 34.0 - 45.0 % [facility] OF PATHOLOGY AND GENOMIC MEDICINE MCV 62.1 (L) 80.0 - 98.0 fL [facility] OF PATHOLOGY AND GENOMIC MEDICINE MCH 17.8 (L) 27.0 - 34.0 pg [facility] OF PATHOLOGY AND GENOMIC MEDICINE MCHC 28.6 (L) 31.5 - 36.5 g/dL [facility]MENT OF PATHOLOGY AND GENOMIC MEDICINE RDW - SD 42.1 37.0 - 51.0 fL [facility] OF PATHOLOGY AND GENOMIC MEDICINE MPV 9.2 7.4 - 10.4 fL [facility] OF PATHOLOGY AND GENOMIC MEDICINE Platelet count 214 150 - 400 k/uL [facility]PART[facility] OF PATHOLOGY AND GENOMIC MEDICINE Nucleated RBC 0.00 /100 WBC [facility] DEPARTMENT OF PATHOLOGY AND GENOMIC MEDICINE Neutrophils 92.0 (H) 36.0 - 66.0 % [facility] OF PATHOLOGY AND GENOMIC MEDICINE Lymphocytes 5.0 (L) 24.0 - 44.0 % [facility]MENT OF PATHOLOGY AND GENOMIC MEDICINE Monocytes 2.0 0.0 - 6.0 % [facility] OF PATHOLOGY AND GENOMIC MEDICINE Eosinophils 1.0 0.0 - 6.0 % [facility] OF PATHOLOGY AND GENOMIC MEDICINE Basophils 0.0 0.0 - 1.2 % [facility]MENT OF PATHOLOGY AND GENOMIC MEDICINE Specimen Blood Performing Organization Address City/[facility] Centercode Phone Number [facility] [address] [place] [address] PATHOLOGY AND GENOMIC MEDICINE * Syphilis treponemal IgG (06/07/2017 10:46 AM SALES AND LEASING CONSULTANT) Syphilis treponemal IgG Non-reactiveComment: Non-reactive [facility] DEPARTMENT OF Non-reactive: No serological PATHOLOGY AND evidence of Syphilis infection GENOMIC [facility] Specimen Serum Performing Organization Address City/[facility] Centercode Phone Number [facility] [address] [place] [address] PATHOLOGY AND GENOMIC MEDICINE * Smear review (06/07/2017 10:46 AM SALES AND LEASING CONSULTANT) Only the most recent of 2 results within the time period is included. Platelet slide review Negar adequate [facility] OF PATHOLOGY AND GENOMIC MEDICINE Anisocytosis 2+ (A) [facility] OF PATHOLOGY AND GENOMIC MEDICINE Polychromasia 1+ [facility] OF PATHOLOGY AND GENOMIC MEDICINE Tear drop cells Occasional [facility] OF PATHOLOGY AND GENOMIC MEDICINE Schistocytes Occasional [facility] OF PATHOLOGY AND GENOMIC MEDICINE Ovalocytes 1+ [facility] OF PATHOLOGY AND GENOMIC MEDICINE Enlarged platelets 1+ [facility] OF PATHOLOGY AND GENOMIC MEDICINE Giant platelets Occasional [facility] OF PATHOLOGY AND GENOMIC MEDICINE Elliptocytes Occasional [facility] OF PATHOLOGY AND GENOMIC MEDICINE Toxic granulation Slight [facility] OF PATHOLOGY AND GENOMIC MEDICINE Performing Organization Address City/[facility] Centercode Phone Number [facility] [address] [place] [address] PATHOLOGY AND GENOMIC MEDICINE * Type and screen, obstetrical patient (06/07/2017 10:46 AM SALES AND LEASING CONSULTANT) Only the most recent of 2 results within the time period is included. ABO grouping O [facility] OF PATHOLOGY AND GENOMIC MEDICINE Rh type POS [facility] OF PATHOLOGY AND GENOMIC MEDICINE Antibody screen (gel) NEG [facility]MENT OF PATHOLOGY AND GENOMIC MEDICINE Specimen Blood Performing Organization Address City/[facility] Centercode Phone Number [place] [address] [place] [address] PATHOLOGY AND GENOMIC MEDICINE * Estimated GFR (06/07/2017 10:46 AM SALES AND LEASING CONSULTANT) Only the most recent of 2 results within the time period is included. GFR Non Af Amer >90 mL/min/1.73 m2 [facility] OF PATHOLOGY AND GENOMIC MEDICINE GFR Af Amer >90 mL/min/1.73 m2 [facility] DEPARTMENT OF Comment: PATHOLOGY AND Chronic kidney [...] Americans. Specimen Plasma specimen Performing Organization Address City/[facility] Centercode Phone Number [facility] [address] [place] [address] [place] [address] PATHOLOGY AND [facility] MEDICINE * HIV 1, 2 antibody (06/07/2017 10:46 AM SALES AND LEASING CONSULTANT) HIV 1, 2 antibody Non-Reactive Non-reactive [facility] DEPARTMENT OF Comment: PATHOLOGY AND Starting from August 17 2015, [facility] 4th generation HIV screening and confirmation assays are in use at [facility], consistent with the CDC-recommended algorithm. [...] the testing algorithm, please refer to: http://stacks.cdc.gov/view/cdc /45026. Specimen Blood Performing Organization Address City/[facility] [place] [address] PATHOLOGY AND GENOMIC MEDICINE * Hepatitis B surface antigen (06/07/2017 10:46 AM SALES AND LEASING CONSULTANT) Hepatitis B surface Ag Non-reactive Non-reactive [facility] OF PATHOLOGY AND [facility] Specimen Blood Performing Organization Address [facility] [place] [address] PATHOLOGY AND Cardiio [facility] * Partial thromboplastin time, activated (06/07/2017 10:46 AM SALES AND LEASING CONSULTANT) Only the most recent of 2 results within the time period is included. PTT 30.7 23.0 - 36.0 sec [facility] DEPART[facility] OF Comment: PATHOLOGY AND PTT therapeutic range for GENOMIC MEDICINE unfractionated heparin is 61.0-112.0 seconds which corresponds to Anti-Xa 0.3-0.7 U/ml. Note:Change in Panic Value The PTT Panic Value is changing from 110 sec. to 100 sec. due to new instrumentation and reagents. Correlation studies have been performed to validate this result. Specimen Blood Performing Organization Address [facility] [place] [place] [address] PATHOLOGY AND Cardiio [facility] * Prothrombin time with INR (06/07/2017 10:46 AM SALES AND LEASING CONSULTANT) Only the most recent of 2 results within the time period is included. Prothrombin time 14.4 12.0 - 15.0 sec [facility] DE[facility] OF PATHOLOGY AND [facility] MEDICINE INR 1.11 0.92 - 1.12 [facility] DEPARTMENT OF Comment: PATHOLOGY AND For patients on anticoagulant GENOMIC MEDICINE therapy, reference ranges below: Indication: INR Value Treatment of Venous Thrombosis, 2.0-3.0 pulmonary emboli, or prophylaxis of a venous thrombosis, or systemic emboli. High dose, high risk patients 3.0-4.5 with mechanical valves. NOTE:INR values over 3.0 are sometimes associated with gastrointestinal hemorrhage, especially values over 4.0. Specimen Blood Performing Organization Address [facility]/Zipcode Phone Number [place] [phone] [place] [address] PATHOLOGY AND GENOMIC MEDICINE * Fibrinogen (06/07/2017 10:46 AM SALES AND LEASING CONSULTANT) Only the most recent of 2 results within the time period is included. Fibrinogen 638 (H) 200 - 450 mg/dL [facility] OF PATHOLOGY AND GENOMIC MEDICINE Specimen Blood Performing Organization Address City/[facility]/Zipcode Phone Number [place] [address] [place] [address] PATHOLOGY AND [facility] * Uric acid level (06/07/2017 10:46 AM SALES AND LEASING CONSULTANT) Only the most recent of 2 results within the time period is included. Uric acid 3.5 2.4 - 5.1 mg/dL [facility] PATHOLOGY AND [facility] MEDICINE Specimen Plasma specimen Performing Organization Address City/[facility] Centercode Phone Number [place] [address] [place] [address] PATHOLOGY AND [facility] * Comprehensive metabolic panel (06/07/2017 10:46 AM SALES AND LEASING CONSULTANT) Only the most recent of 2 results within the time period is included. Sodium 137 135 - 150 mEq/L [facility] OF PATHOLOGY AND GENOMIC MEDICINE Potassium 3.4 (L) 3.5 - 5.0 mEq/L [facility]MENT OF PATHOLOGY AND GENOMIC MEDICINE Chloride 106 100 - 109 mEq/L [facility]MENT OF PATHOLOGY AND GENOMIC MEDICINE CO2 21 (L) 24 - 32 mmol/L [facility]MENT OF PATHOLOGY AND GENOMIC MEDICINE Anion gap 10 7 - 15 mEq/L [facility] DE[facility] OF Comment: PATHOLOGY AND Starting from August [facility] , anion gap calculation no longer incorporates potassium. Please note the change. BUN 7 7 - 18 mg/dL [facility]MENT OF PATHOLOGY AND GENOMIC MEDICINE Creatinine 0.5 (L) 0.8 - 1.5 mg/dL [facility] OF PATHOLOGY AND GENOMIC MEDICINE Glucose 67 65 - 100 mg/dL [facility]MENT OF PATHOLOGY AND GENOMIC MEDICINE Calcium 8.0 (L) 8.6 - 10.7 mg/dL [facility] OF PATHOLOGY AND GENOMIC MEDICINE Protein 6.2 (L) 6.3 - 8.2 g/dL [facility] OF PATHOLOGY AND GENOMIC MEDICINE Albumin 2.2 (L) 3.2 - 5.0 g/dL [facility] OF PATHOLOGY AND GENOMIC MEDICINE A/G ratio 0.6 (L) 0.7 - 3.8 [facility]MENT OF PATHOLOGY AND GENOMIC MEDICINE Alkaline phosphatase 106 30 - 120 U/L [facility] OF PATHOLOGY AND GENOMIC MEDICINE AST 19 15 - 37 U/L [facility] PATHOLOGY AND GENOMIC MEDICINE ALT 12 (L) 30 - 65 U/L [facility]MENT OF PATHOLOGY AND GENOMIC MEDICINE Total bilirubin 0.3 0.2 - 1.2 mg/dL [facility]MENT OF PATHOLOGY AND GENOMIC MEDICINE Specimen Plasma specimen Performing Organization Address City/State/[facility] Centerconc Phone Number [facility] [address] [place] [address] PATHOLOGY AND GENOMIC MEDICINE * Urinalysis screen and microscopy, with reflex to culture (06/07/2017 10:09 AM SALES AND LEASING CONSULTANT) Only the most recent of 2 results within the time period is included. Specimen site Clean catch [facility] OF PATHOLOGY AND GENOMIC MEDICINE Color, UA Debbie [facility] OF PATHOLOGY AND GENOMIC MEDICINE Appearance, UA Cloudy [facility]MENT OF PATHOLOGY AND GENOMIC MEDICINE Specific gravity, UA 1.026 1.001 - 1.035 [facility] OF PATHOLOGY AND GENOMIC MEDICINE pH, UA 5.0 5.0 - 8.5 [facility]MENT OF PATHOLOGY AND GENOMIC MEDICINE Protein, UA 1+ (A) Negative [facility]MENT OF PATHOLOGY AND GENOMIC MEDICINE Glucose, UA Negative Negative [facility]MENT OF PATHOLOGY AND GENOMIC MEDICINE Ketones, UA Negative Negative [facility] DE[facility]MENT OF PATHOLOGY AND GENOMIC MEDICINE Bilirubin, UA Negative Negative [facility] DE[facility]MENT OF PATHOLOGY AND GENOMIC MEDICINE Blood, UA Negative Negative [facility] DE[facility]MENT OF PATHOLOGY AND GENOMIC MEDICINE Nitrite, UA Negative Negative [facility] DE[facility]MENT OF PATHOLOGY AND GENOMIC MEDICINE Urobilinogen, UA 2.0 (A) <2.0 [facility] DE[facility]MENT OF PATHOLOGY AND GENOMIC MEDICINE Leukocyte esterase, UA Large (A) Negative [facility] DE[facility]MENT OF PATHOLOGY AND GENOMIC MEDICINE Epithelial cells, UA Many /HPF [facility] DE[facility]MENT OF PATHOLOGY AND GENOMIC MEDICINE WBC, UA 32 (H) 0 - 5 /HPF [facility] DEPARTMENT OF PATHOLOGY AND GENOMIC MEDICINE RBC, UA 4 0 - 5 /HPF [facility] DE[facility]MENT OF PATHOLOGY AND GENOMIC MEDICINE Bacteria, UA Trace None seen [facility]MENT OF PATHOLOGY AND GENOMIC MEDICINE Yeast, UA None seen [facility] DE[facility]MENT OF PATHOLOGY AND GENOMIC MEDICINE Yeast with pseudohyphae, None seen [facility] DE[facility]MENT OF PATHOLOGY AND GENOMIC MEDICINE Hyaline casts, UA 2 /LPF [facility] DEPARTMENT OF PATHOLOGY AND GENOMIC MEDICINE Specimen Urine Performing Organization Address City/[facility]/Zipcode Phone Number [facility] DE[facility]MENT OF [address] [place] [address] PATHOLOGY AND GENOMIC MEDICINE * Gram stain (06/07/2017 10:09 AM SALES AND LEASING CONSULTANT) Only the most recent of 2 results within the time period is included. Gram stain result No WBC's [facility] DEPARTMENT OF Many Gram positive rods PATHOLOGY AND Comment: GENOMIC MEDICINE Specimen Information Specimen Source: Urine Specimen Site: Clean catch Specimen Urine Performing Organization Address [facility] Centercode Phone Number [facility] DEPARTMENT OF [address] [place] [address] PATHOLOGY AND GENOMIC MEDICINE * Urine culture (06/07/2017 10:09 AM SALES AND LEASING CONSULTANT) Only the most recent of 2 results within the time period is included. Urine culture isolate Mixed Gram positive mackenzie [facility] DEPARTMENT OF 10-2 cfu/ml PATHOLOGY AND (A) GENOMIC MEDICINE Comment: Specimen Information Specimen Source: Urine Specimen Site: Clean catch Specimen Urine Performing Organization Address [facility] Centercode Phone Number [facility] DEPARTMENT OF [address] [place] [address] PATHOLOGY AND GENOMIC MEDICINE * Amnisure (05/28/2017 1:08 AM SALES AND LEASING CONSULTANT) Only the most recent of 3 results within the time period is included. Amnisure, POC NEGATIVE [facility] DE[facility]MENT OF PATHOLOGY AND GENOMIC MEDICINE Specimen Amniotic fluid Performing Organization Address [facility] Phone Number [facility] [place] [address] [place] [address]. [place] [address] PATHOLOGY AND GENOMIC MEDICINE * US Biophysical Profile (05/28/2017 12:59 AM SALES AND LEASING CONSULTANT) Narrative Performed At EXAMINATION:US BIOPHYSICAL PROFILE [facility] [...] is 8 out of a possible 8. [facility]-[id number] Procedure Note Interface, Radiology Results Incoming - 05/28/2017 1:05 AM SALES AND LEASING CONSULTANT EXAMINATION: US BIOPHYSICAL PROFILE CLINICAL HISTORY: pt [...] is 8 out of a possible 8. [facility]-[id number] Performing Organization Address City/[facility]/Zipcode Phone Number [facility] [address] [place] [address] * Beta strep screen culture with woodruff broth (05/17/2017) Strep gp B culture neg EXTERNAL LAB NON-INTERFACED Specimen Vaginal Performing Organization Address City/[facility]conc Phone Number EXTERNAL LAB NON-INTERFACED * Magnesium, therapeutic (05/09/2017 11:45 AM SALES AND LEASING CONSULTANT) Only the most recent of 4 results within the time period is included. Magnesium, therapeutic 6.5 4.5 - 7.9 [facility] DE[facility]MENT OF PATHOLOGY AND GENOMIC MEDICINE Specimen Plasma specimen Performing Organization Address City/[facility] Phone Number [facility] DE[facility] OF [address] [place] [address] PATHOLOGY AND GENOMIC MEDICINE * US Limited (05/08/2017 12:20 PM SALES AND LEASING CONSULTANT) Narrative Performed At EXAMINATION:US LIMITED [facility] INDICATION:Premature [...] Radiology Results Incoming - 05/08/2017 12:36 PM SALES AND LEASING CONSULTANT EXAMINATION: US LIMITED INDICATION: Premature labor. COMPARISON: [...] is not well visualized. Performing Organization Address City/[facility]/Zipcode Phone Number [facility] [address] [place] [address] * Urine drugs of abuse screen (05/08/2017 11:15 AM SALES AND LEASING CONSULTANT) Amphetamine screen, urine NEG [facility]MENT OF PATHOLOGY AND GENOMIC MEDICINE Barbiturate screen, urine NEG [facility] DE[facility]MENT OF PATHOLOGY AND GENOMIC MEDICINE Benzodiazepine screen, NEG [facility] OF urine PATHOLOGY AND GENOMIC MEDICINE Cocaine screen, urine NEG [facility] DE[facility]MENT OF PATHOLOGY AND GENOMIC MEDICINE Methadone screen, urine NEG [facility] DE[facility]MENT OF PATHOLOGY AND GENOMIC MEDICINE Opiates screen, urine NEG [facility] DE[facility]MENT OF PATHOLOGY AND GENOMIC MEDICINE Phencyclidine screen, NEG [facility] OF urine PATHOLOGY AND GENOMIC MEDICINE Cannabinoid screen, urine NEG [facility] OF Comment: PATHOLOGY AND Drug screen [...] purposes only. Specimen Urine Performing Organization Address City/[facility]/Zipcode Phone Number [facility] [place] [id number] [place] [address] PATHOLOGY AND GENOMIC MEDICINE after 04/22/2017 Insurance Payer Benefit Subscriber ID Type Phone Address Plan / Group [employer] [facility] xxxxxxxxx [facility] Advance Directives Patient has advance care planning documents, and code status on file. For more i nformation, please contact: Jamey Hanson [address] [place] [address] Date Inactivated Comments Code Status Date Activated [...]
[2018-04-24] MEDS ORDERED: MORPHINE SULFATE 2 MG/ML SYR IV STA ×2 (00:01→01:05)
[2018-04-24] MEDS ORDERED: ONDANSETRON HCL INJ 2 MG/ML VIAL IV STA (00:01)
[2018-04-24] MEDS ORDERED: SODIUM CHLORIDE 0.9% 1000ML 1,000 ML IV SCH (00:15)
--- NOTE | 2018-04-24 02:16 | Diagnostic Imaging Report ---
EXAM: CT ABD/PEL WITH CONTRAST-HOPD DATE: 04/24/2018 12:00 AM INDICATION: Nausea, vomiting, diarrhea, concern for incarcerated hernia COMPARISON: 04/19/2018 TECHNIQUE: The abdomen and pelvis were scanned using a multidetector helical scanner. Coronal and sagittal reformations were obtained. CT low dose techniques were utilized, as applicable. IV Contrast: 100 ml Isovue 300/370 FINDINGS: LOWER THORAX: No consolidations LIVER/BILIARY: No masses. No ductal dilatation. GALLBLADDER: Surgically absent SPLEEN: Unremarkable PANCREAS: Unremarkable ADRENALS: No nodules KIDNEYS: No suspicious renal masses. No hydronephrosis. GI TRACT: No wall thickening or evidence of obstruction. VESSELS: Unremarkable PERITONEUM/RETROPERITONEUM: Mild pelvic free fluid, stable. LYMPH NODES: No lymphadenopathy REPRODUCTIVE ORGANS/BLADDER: Unremarkable with incidental right corpus luteum. SOFT TISSUES: Evidence of prior ventral hernia repair. There is again a recurrent and/or adjacent left para midline ventral hernia (neck approximately 3.5 x 5.3 cm), containing predominantly nonobstructed small bowel on today's study. Haziness and trace fluid in the hernia sac is unchanged. BONES: No suspicious bone lesions. IMPRESSION: Prior ventral hernia repair with recurrent complex hernia containing nonobstructed small bowel. Signed by: Dr Angelina Arauz MD on 04/24/2018 2:13 AM
[2018-04-24] MEDS ORDERED: MORPHINE SULFATE INJ 4 MG/ML INJ IV STA (02:40)
[2018-04-24] MEDS ORDERED: HYDROMORPHONE 1MG/1ML INJ IV PRN (02:45)
--- OUTSIDE RECORDS SUMMARY | 2018-04-24 03:05 | XMS REPORT | Clinical Summary ---
Author Author [facility] Organization [facility] Address Unknown Phone Unavailable Care Team Providers Care [place] Manager Name Role Phone Meet Raines MD PCP [...] MD 05/07/2017 Documentation Obstetrics and Gynecology after 04/23/2017 Immunizations Name Dates Previously Given Next Due [...] Taken Vital Sign Reading 06/09/2017 8:32 PM WARD SUPERVISOR Blood Pressure 123/75 06/09/2017 8:32 PM WARD SUPERVISOR Pulse 94 06/09/2017 8:32 PM WARD SUPERVISOR Temperature 36.2 C (97.1 F) 06/10/2017 7:21 AM WARD SUPERVISOR Respiratory Rate 20 06/09/2017 8:32 PM WARD SUPERVISOR Oxygen Saturation 99% - Inhaled Oxygen - Concentration 06/07/2017 10:10 AM WARD SUPERVISOR Weight 107 kg (236 lb) 06/07/2017 10:10 AM WARD SUPERVISOR Height 160 cm (5' 3") 06/07/2017 10:10 AM WARD SUPERVISOR Body Mass Index 41.81 Plan of Treatment [...] Diagnosis MANUAL DIFFERENTIAL STAT 06/08/2017 7:24 AM WARD SUPERVISOR CBC WITH PLATELET AND STAT 06/08/2017 DIFFERENTIAL 7:24 AM WARD SUPERVISOR ANESTHESIA SPINAL BLOCK Routine 06/07/2017 1:50 PM WARD SUPERVISOR Procedure Note - Medina Olvera MD - 06/07/2017 1:11 PM WARD SUPERVISOR Spinal Block Performed by: MEDINA OLVERA Authorized [...] DELIVERY, 06/07/2017 Encounter for supervision 12:30 PM WARD SUPERVISOR of high risk in second trimester, antepartum Special Needs DUE DATE: 06/14/16GBS : NEGG/P: 3/2WKS: 32/5 SMEAR REVIEW STAT 06/07/2017 10:46 AM WARD SUPERVISOR ZZESTIMATED GFR STAT 06/07/2017 10:46 AM WARD SUPERVISOR URIC ACID LEVEL STAT 06/07/2017 10:46 AM WARD SUPERVISOR FIBRINOGEN STAT 06/07/2017 10:46 AM WARD SUPERVISOR PARTIAL THROMBOPLASTIN STAT 06/07/2017 TIME (PTT) 10:46 AM WARD SUPERVISOR PROTHROMBIN TIME WITH INR STAT 06/07/2017 10:46 AM WARD SUPERVISOR COMPREHENSIVE METABOLIC STAT 06/07/2017 PANEL 10:46 AM WARD SUPERVISOR HIV 1, 2 ANTIBODY STAT 06/07/2017 10:46 AM WARD SUPERVISOR TYPE AND SCREEN, STAT 06/07/2017 OBSTETRICAL PATIENT 10:46 AM WARD SUPERVISOR SYPHILIS TREPONEMAL IGG STAT 06/07/2017 10:46 AM WARD SUPERVISOR HEPATITIS B SURFACE STAT 06/07/2017 ANTIGEN 10:46 AM WARD SUPERVISOR HC COMPLETE BLD COUNT STAT 06/07/2017 W/AUTO DIFF 10:46 AM WARD SUPERVISOR URINALYSIS SCREEN AND STAT 06/07/2017 MICROSCOPY, WITH REFLEX 10:09 AM WARD SUPERVISOR TO CULTURE GRAM STAIN STAT 06/07/2017 10:09 AM WARD SUPERVISOR URINE CULTURE STAT 06/07/2017 10:09 AM WARD SUPERVISOR AMNISURE Routine 05/28/2017 1:08 AM WARD SUPERVISOR US BIOPHYSICAL STAT 05/28/2017 PROFILE 12:59 AM WARD SUPERVISOR BETA STREP SCREEN CULTURE Routine 05/17/2017 WITH WOODRUFF BROTH AMNISURE Routine 05/16/2017 2:50 PM WARD SUPERVISOR MAGNESIUM, THERAPEUTIC Timed 05/09/2017 11:45 AM WARD SUPERVISOR MAGNESIUM, THERAPEUTIC Timed 05/09/2017 6:11 AM WARD SUPERVISOR MAGNESIUM, THERAPEUTIC Timed 05/08/2017 11:28 PM WARD SUPERVISOR MAGNESIUM, THERAPEUTIC STAT 05/08/2017 6:24 PM WARD SUPERVISOR AMNISURE Routine 05/08/2017 1:20 PM WARD SUPERVISOR US LIMITED STAT 05/08/2017 12:20 PM WARD SUPERVISOR SMEAR REVIEW Routine 05/08/2017 11:30 AM WARD SUPERVISOR ZZESTIMATED GFR Routine 05/08/2017 11:30 AM WARD SUPERVISOR URIC ACID LEVEL Routine 05/08/2017 11:30 AM WARD SUPERVISOR FIBRINOGEN Routine 05/08/2017 11:30 AM WARD SUPERVISOR PARTIAL THROMBOPLASTIN Routine 05/08/2017 TIME (PTT) 11:30 AM WARD SUPERVISOR PROTHROMBIN TIME WITH INR Routine 05/08/2017 11:30 AM WARD SUPERVISOR COMPREHENSIVE METABOLIC Routine 05/08/2017 PANEL 11:30 AM WARD SUPERVISOR HC COMPLETE BLD COUNT Routine 05/08/2017 W/AUTO DIFF 11:30 AM WARD SUPERVISOR TYPE AND SCREEN, Routine 05/08/2017 OBSTETRICAL PATIENT 11:30 AM WARD SUPERVISOR URINE DRUGS OF ABUSE STAT 05/08/2017 SCREEN 11:15 AM WARD SUPERVISOR URINALYSIS SCREEN AND Routine 05/08/2017 MICROSCOPY, WITH REFLEX 11:15 AM WARD SUPERVISOR TO CULTURE GRAM STAIN Routine 05/08/2017 11:15 AM WARD SUPERVISOR URINE CULTURE Routine 05/08/2017 11:15 AM WARD SUPERVISOR after 04/23/2017 Results * Manual differential (06/08/2017 7:24 AM WARD SUPERVISOR) Manual differential PERFORMED [facility] DEPARTMENT OF PATHOLOGY AND GENOMIC MEDICINE Neutrophils 92.0 (H) 36.0 - 66.0 % [facility] DEPARTMENT OF PATHOLOGY AND GENOMIC MEDICINE Lymphocytes 5.0 (L) 24.0 - 44.0 % [facility] DEPARTMENT OF PATHOLOGY AND GENOMIC MEDICINE Monocytes 2.0 0.0 - 6.0 % [facility] DEPARTMENT OF PATHOLOGY AND GENOMIC MEDICINE Eosinophils 1.0 0.0 - 6.0 % [facility] DEPARTMENT OF PATHOLOGY AND GENOMIC MEDICINE Basophils 0.0 0.0 - 1.2 % [facility] DEPARTMENT OF PATHOLOGY AND GENOMIC MEDICINE Metamyelocytes 0 0 - 1 % [facility] DEPARTMENT OF PATHOLOGY AND GENOMIC MEDICINE Promyelocytes 0 0 - 1 % [facility] DEPARTMENT OF PATHOLOGY AND GENOMIC MEDICINE Platelet slide review Negar adequate [facility] DEPARTMENT OF PATHOLOGY AND GENOMIC MEDICINE Anisocytosis Moderate [facility] DEPARTMENT OF PATHOLOGY AND GENOMIC MEDICINE Polychromasia Slight [facility] DEPARTMENT OF PATHOLOGY AND GENOMIC MEDICINE Tear drop cells Rare [facility] DEPARTMENT OF PATHOLOGY AND GENOMIC MEDICINE Schistocytes Rare [facility] DEPARTMENT OF PATHOLOGY AND GENOMIC MEDICINE Ovalocytes Moderate [facility] DEPARTMENT OF PATHOLOGY AND GENOMIC MEDICINE Performing Organization Address City/State/Zipcode Phone Number [place] [phone] [place] [address] PATHOLOGY AND GENOMIC MEDICINE * CBC with platelet and differential (06/08/2017 7:24 AM WARD SUPERVISOR) Only the most recent of 3 results within the time period is included. WBC 10.5 4.2 - 11.0 k/uL [facility] DEPARTMENT OF PATHOLOGY AND GENOMIC MEDICINE RBC 3.38 (L) 4.04 - 5.86 m/uL [facility] DEPARTMENT OF PATHOLOGY AND GENOMIC MEDICINE HGB 6.0 (LL) 11.5 - 15.3 g/dL [facility] DEPARTMENT OF Comment: PATHOLOGY AND REPEAT HGB=6.0 GENOMIC MEDICINE Results called to and read back by KARIN BURGER OB at07:56006/08/2017 WEB HCT 21.0 (L) 34.0 - 45.0 % [facility] DEPARTMENT OF PATHOLOGY AND GENOMIC MEDICINE MCV 62.1 (L) 80.0 - 98.0 fL [facility] DEPARTMENT OF PATHOLOGY AND GENOMIC MEDICINE MCH 17.8 (L) 27.0 - 34.0 pg [facility] DEPARTMENT OF PATHOLOGY AND GENOMIC MEDICINE MCHC 28.6 (L) 31.5 - 36.5 g/dL [facility] DEPARTMENT OF PATHOLOGY AND GENOMIC MEDICINE RDW - SD 42.1 37.0 - 51.0 fL [facility] DEPARTMENT OF PATHOLOGY AND GENOMIC MEDICINE MPV 9.2 7.4 - 10.4 fL [facility] DEPARTMENT OF PATHOLOGY AND GENOMIC MEDICINE Platelet count 214 150 - 400 k/uL [facility] DEPARTMENT OF PATHOLOGY AND GENOMIC MEDICINE Nucleated RBC 0.00 /100 WBC [facility] DEPARTMENT OF PATHOLOGY AND GENOMIC MEDICINE Neutrophils 92.0 (H) 36.0 - 66.0 % [facility] DEPARTMENT OF PATHOLOGY AND GENOMIC MEDICINE Lymphocytes 5.0 (L) 24.0 - 44.0 % [facility] DEPARTMENT OF PATHOLOGY AND GENOMIC MEDICINE Monocytes 2.0 0.0 - 6.0 % [facility] DEPARTMENT OF PATHOLOGY AND GENOMIC MEDICINE Eosinophils 1.0 0.0 - 6.0 % [facility] DEPARTMENT OF PATHOLOGY AND GENOMIC MEDICINE Basophils 0.0 0.0 - 1.2 % [facility] DEPARTMENT OF PATHOLOGY AND GENOMIC MEDICINE Specimen Blood Performing Organization Address City/[facility] Cent[facility]ode Phone Number [facility] [address] [place] [address] PATHOLOGY AND GENOMIC MEDICINE * Syphilis treponemal IgG (06/07/2017 10:46 AM WARD SUPERVISOR) Syphilis treponemal IgG Non-reactiveComment: Non-reactive [facility] DEPARTMENT OF Non-reactive: No serological PATHOLOGY AND evidence of Syphilis infection GENOMIC [facility] Specimen Serum Performing Organization Address City/[facility] Centercode Phone Number [facility] [address] [place] [address] PATHOLOGY AND GENOMIC MEDICINE * Smear review (06/07/2017 10:46 AM WARD SUPERVISOR) Only the most recent of 2 results within the time period is included. Platelet slide review Negar adequate [facility] DEPARTMENT OF PATHOLOGY AND GENOMIC MEDICINE Anisocytosis 2+ (A) [facility] DEPARTMENT OF PATHOLOGY AND GENOMIC MEDICINE Polychromasia 1+ [facility] DEPARTMENT OF PATHOLOGY AND GENOMIC MEDICINE Tear drop cells Occasional [facility] DEPARTMENT OF PATHOLOGY AND GENOMIC MEDICINE Schistocytes Occasional [facility] DEPARTMENT OF PATHOLOGY AND GENOMIC MEDICINE Ovalocytes 1+ [facility] DEPARTMENT OF PATHOLOGY AND GENOMIC MEDICINE Enlarged platelets 1+ [facility] DEPARTMENT OF PATHOLOGY AND GENOMIC MEDICINE Giant platelets Occasional [facility] DEPARTMENT OF PATHOLOGY AND GENOMIC MEDICINE Elliptocytes Occasional [facility] DEPARTMENT OF PATHOLOGY AND GENOMIC MEDICINE Toxic granulation Slight [facility] DEPARTMENT OF PATHOLOGY AND GENOMIC MEDICINE Performing Organization Address City/[facility] Centercode Phone Number [facility] [address] [place] [address] PATHOLOGY AND GENOMIC MEDICINE * Type and screen, obstetrical patient (06/07/2017 10:46 AM WARD SUPERVISOR) Only the most recent of 2 results within the time period is included. ABO grouping O [facility] DEPARTMENT OF PATHOLOGY AND GENOMIC MEDICINE Rh type POS [facility] DEPARTMENT OF PATHOLOGY AND GENOMIC MEDICINE Antibody screen (gel) NEG [facility] DEPARTMENT OF PATHOLOGY AND GENOMIC MEDICINE Specimen Blood Performing Organization Address City/[facility] Centercode Phone Number [place] [address] [place] [address] PATHOLOGY AND GENOMIC MEDICINE * Estimated GFR (06/07/2017 10:46 AM WARD SUPERVISOR) Only the most recent of 2 results within the time period is included. GFR Non Af Amer >90 mL/min/1.73 m2 [facility] DEPARTMENT OF PATHOLOGY AND GENOMIC MEDICINE GFR Af Amer >90 mL/min/1.73 m2 [facility] DEPARTMENT OF Comment: PATHOLOGY AND Chronic kidney [...] Americans. Specimen Plasma specimen Performing Organization Address City/[facility] Centercode Phone Number [facility] [address] [place] [address] [place] [address] PATHOLOGY AND [employer] * HIV 1, 2 antibody (06/07/2017 10:46 AM WARD SUPERVISOR) HIV 1, 2 antibody Non-Reactive Non-reactive [facility] DEPARTMENT OF Comment: PATHOLOGY AND Starting from August 17 2015, [employer] 4th generation HIV screening and confirmation assays are in use at [facility], consistent with the CDC-recommended algorithm. [...] the testing algorithm, please refer to: http://stacks.cdc.gov/view/cdc /42422. Specimen Blood Performing Organization Address City/[facility] [place] [address] PATHOLOGY AND GENOMIC MEDICINE * Hepatitis B surface antigen (06/07/2017 10:46 AM WARD SUPERVISOR) Hepatitis B surface Ag Non-reactive Non-reactive [facility] DEPARTMENT OF PATHOLOGY AND [facility] Specimen Blood Performing Organization Address [facility] [place] [address] PATHOLOGY AND [employer] [facility] * Partial thromboplastin time, activated (06/07/2017 10:46 AM WARD SUPERVISOR) Only the most recent of 2 results within the time period is included. PTT 30.7 23.0 - 36.0 sec [facility] DEPARTMENT OF Comment: PATHOLOGY AND PTT therapeutic range for GENOMIC MEDICINE unfractionated heparin is 61.0-112.0 seconds which corresponds to Anti-Xa 0.3-0.7 U/ml. Note:Change in Panic Value The PTT Panic Value is changing from 110 sec. to 100 sec. due to new instrumentation and reagents. Correlation studies have been performed to validate this result. Specimen Blood Performing Organization Address [facility] [place]/[facility] [place] [address] PATHOLOGY AND [employer] [facility] * Prothrombin time with INR (06/07/2017 10:46 AM WARD SUPERVISOR) Only the most recent of 2 results within the time period is included. Prothrombin time 14.4 12.0 - 15.0 sec [facility] DEPARTMENT OF PATHOLOGY AND [employer] INR 1.11 0.92 - 1.12 [facility] DEPARTMENT OF Comment: PATHOLOGY AND For patients on anticoagulant GENOMIC MEDICINE therapy, reference ranges below: Indication: INR Value Treatment of Venous Thrombosis, 2.0-3.0 pulmonary emboli, or prophylaxis of a venous thrombosis, or systemic emboli. High dose, high risk patients 3.0-4.5 with mechanical valves. NOTE:INR values over 3.0 are sometimes associated with gastrointestinal hemorrhage, especially values over 4.0. Specimen Blood Performing Organization Address [facility]/Zipcode Phone Number [place] [phone] [place] [address] PATHOLOGY AND GENOMIC MEDICINE * Fibrinogen (06/07/2017 10:46 AM WARD SUPERVISOR) Only the most recent of 2 results within the time period is included. Fibrinogen 638 (H) 200 - 450 mg/dL [facility] DEPARTMENT OF PATHOLOGY AND GENOMIC MEDICINE Specimen Blood Performing Organization Address City/[facility]/Zipcode Phone Number [place] [phone] [place] [address] PATHOLOGY AND [facility] * Uric acid level (06/07/2017 10:46 AM WARD SUPERVISOR) Only the most recent of 2 results within the time period is included. Uric acid 3.5 2.4 - 5.1 mg/dL [facility] PATHOLOGY AND [employer] Specimen Plasma specimen Performing Organization Address City/[facility] Centercode Phone Number [place] [address] [place] [address] PATHOLOGY AND [facility] * Comprehensive metabolic panel (06/07/2017 10:46 AM WARD SUPERVISOR) Only the most recent of 2 results within the time period is included. Sodium 137 135 - 150 mEq/L [facility] DEPARTMENT OF PATHOLOGY AND GENOMIC MEDICINE Potassium 3.4 (L) 3.5 - 5.0 mEq/L [facility] DEPARTMENT OF PATHOLOGY AND GENOMIC MEDICINE Chloride 106 100 - 109 mEq/L [facility] DEPARTMENT OF PATHOLOGY AND GENOMIC MEDICINE CO2 21 (L) 24 - 32 mmol/L [facility] DEPARTMENT OF PATHOLOGY AND GENOMIC MEDICINE Anion gap 10 7 - 15 mEq/L [facility] DEPARTMENT OF Comment: PATHOLOGY AND Starting from August [facility] , anion gap calculation no longer incorporates potassium. Please note the change. BUN 7 7 - 18 mg/dL [facility] DEPARTMENT OF PATHOLOGY AND GENOMIC MEDICINE Creatinine 0.5 (L) 0.8 - 1.5 mg/dL [facility] DEPARTMENT OF PATHOLOGY AND GENOMIC MEDICINE Glucose 67 65 - 100 mg/dL [facility] DEPARTMENT OF PATHOLOGY AND GENOMIC MEDICINE Calcium 8.0 (L) 8.6 - 10.7 mg/dL [facility] DEPARTMENT OF PATHOLOGY AND GENOMIC MEDICINE Protein 6.2 (L) 6.3 - 8.2 g/dL [facility] DEPARTMENT OF PATHOLOGY AND GENOMIC MEDICINE Albumin 2.2 (L) 3.2 - 5.0 g/dL [facility] DEPARTMENT OF PATHOLOGY AND GENOMIC MEDICINE A/G ratio 0.6 (L) 0.7 - 3.8 [facility] DEPARTMENT OF PATHOLOGY AND GENOMIC MEDICINE Alkaline phosphatase 106 30 - 120 U/L [facility] DEPARTMENT OF PATHOLOGY AND GENOMIC MEDICINE AST 19 15 - 37 U/L [facility] DEPARTMENT PATHOLOGY AND GENOMIC MEDICINE ALT 12 (L) 30 - 65 U/L [facility] DEPARTMENT OF PATHOLOGY AND GENOMIC MEDICINE Total bilirubin 0.3 0.2 - 1.2 mg/dL [facility] DEPARTMENT OF PATHOLOGY AND GENOMIC MEDICINE Specimen Plasma specimen Performing Organization Address City/State/[facility] Centerconh Phone Number [facility] [address] [place] [address] PATHOLOGY AND GENOMIC MEDICINE * Urinalysis screen and microscopy, with reflex to culture (06/07/2017 10:09 AM WARD SUPERVISOR) Only the most recent of 2 results within the time period is included. Specimen site Clean catch [facility] DEPARTMENT OF PATHOLOGY AND GENOMIC MEDICINE Color, UA Debbie [facility] DEPARTMENT OF PATHOLOGY AND GENOMIC MEDICINE Appearance, UA Cloudy [facility] DEPARTMENT OF PATHOLOGY AND GENOMIC MEDICINE Specific gravity, UA 1.026 1.001 - 1.035 [facility] DEPARTMENT OF PATHOLOGY AND GENOMIC MEDICINE pH, UA 5.0 5.0 - 8.5 [facility] DEPARTMENT OF PATHOLOGY AND GENOMIC MEDICINE Protein, UA 1+ (A) Negative [facility] DEPARTMENT OF PATHOLOGY AND GENOMIC MEDICINE Glucose, UA Negative Negative [facility] DEPARTMENT OF PATHOLOGY AND GENOMIC MEDICINE Ketones, UA Negative Negative [facility] DEPARTMENT OF PATHOLOGY AND GENOMIC MEDICINE Bilirubin, UA Negative Negative [facility] DEPARTMENT OF PATHOLOGY AND GENOMIC MEDICINE Blood, UA Negative Negative [facility] DEPARTMENT OF PATHOLOGY AND GENOMIC MEDICINE Nitrite, UA Negative Negative [facility] DEPARTMENT OF PATHOLOGY AND GENOMIC MEDICINE Urobilinogen, UA 2.0 (A) <2.0 [facility] DEPARTMENT OF PATHOLOGY AND GENOMIC MEDICINE Leukocyte esterase, UA Large (A) Negative [facility] DEPARTMENT OF PATHOLOGY AND GENOMIC MEDICINE Epithelial cells, UA Many /HPF [facility] DEPARTMENT OF PATHOLOGY AND GENOMIC MEDICINE WBC, UA 32 (H) 0 - 5 /HPF [facility] DEPARTMENT OF PATHOLOGY AND GENOMIC MEDICINE RBC, UA 4 0 - 5 /HPF [facility] DEPARTMENT OF PATHOLOGY AND GENOMIC MEDICINE Bacteria, UA Trace None seen [facility] DEPARTMENT OF PATHOLOGY AND GENOMIC MEDICINE Yeast, UA None seen [facility] DEPARTMENT OF PATHOLOGY AND GENOMIC MEDICINE Yeast with pseudohyphae, None seen [facility] DEPARTMENT OF PATHOLOGY AND GENOMIC MEDICINE Hyaline casts, UA 2 /LPF [facility] DEPARTMENT OF PATHOLOGY AND GENOMIC MEDICINE Specimen Urine Performing Organization Address City/[facility]/Zipcode Phone Number [facility] DEPARTMENT OF [address] [address] PATHOLOGY AND GENOMIC MEDICINE * Gram stain (06/07/2017 10:09 AM WARD SUPERVISOR) Only the most recent of 2 results within the time period is included. Gram stain result No WBC's [facility] DEPARTMENT OF Many Gram positive rods PATHOLOGY AND Comment: GENOMIC MEDICINE Specimen Information Specimen Source: Urine Specimen Site: Clean catch Specimen Urine Performing Organization Address [facility] Centercode Phone Number [facility] DEPARTMENT OF [address] [place] [address] PATHOLOGY AND GENOMIC MEDICINE * Urine culture (06/07/2017 10:09 AM WARD SUPERVISOR) Only the most recent of 2 results within the time period is included. Urine culture isolate Mixed Gram positive mackenzie [facility] DEPARTMENT OF 10-2 cfu/ml PATHOLOGY AND (A) GENOMIC MEDICINE Comment: Specimen Information Specimen Source: Urine Specimen Site: Clean catch Specimen Urine Performing Organization Address [facility] Centercode Phone Number [facility] DEPARTMENT OF [address] [place] [address] PATHOLOGY AND GENOMIC MEDICINE * Amnisure (05/28/2017 1:08 AM WARD SUPERVISOR) Only the most recent of 3 results within the time period is included. Amnisure, POC NEGATIVE [facility] DEPARTMENT OF PATHOLOGY AND GENOMIC MEDICINE Specimen Amniotic fluid Performing Organization Address [facility] Phone Number [facility] [place] [address] [place] [address]. [place] [address] PATHOLOGY AND GENOMIC MEDICINE * US Biophysical Profile (05/28/2017 12:59 AM WARD SUPERVISOR) Narrative Performed At EXAMINATION:US BIOPHYSICAL PROFILE [facility] [...] is 8 out of a possible 8. [facility]-[id number] Procedure Note Interface, Radiology Results Incoming - 05/28/2017 1:05 AM WARD SUPERVISOR EXAMINATION: US BIOPHYSICAL PROFILE CLINICAL HISTORY: pt [...] is 8 out of a possible 8. [facility]-[id number] Performing Organization Address City/[facility]/Zipcode Phone Number [facility] [address] [place] [address] * Beta strep screen culture with woodruff broth (05/17/2017) Strep gp B culture neg EXTERNAL LAB NON-INTERFACED Specimen Vaginal Performing Organization Address City/[facility]conh Phone Number EXTERNAL LAB NON-INTERFACED * Magnesium, therapeutic (05/09/2017 11:45 AM WARD SUPERVISOR) Only the most recent of 4 results within the time period is included. Magnesium, therapeutic 6.5 4.5 - 7.9 [facility] DEPARTMENT OF PATHOLOGY AND GENOMIC MEDICINE Specimen Plasma specimen Performing Organization Address City/[facility] Phone Number [facility] DEPARTMENT OF [address] [place] [address] PATHOLOGY AND GENOMIC MEDICINE * US Limited (05/08/2017 12:20 PM WARD SUPERVISOR) Narrative Performed At EXAMINATION:US LIMITED [facility] INDICATION:Premature [...] Radiology Results Incoming - 05/08/2017 12:36 PM WARD SUPERVISOR EXAMINATION: US LIMITED INDICATION: Premature labor. COMPARISON: [...] is not well visualized. Performing Organization Address City/[facility]/Zipcode Phone Number [facility] [address] [place] [address] * Urine drugs of abuse screen (05/08/2017 11:15 AM WARD SUPERVISOR) Amphetamine screen, urine NEG [facility] DEPARTMENT OF PATHOLOGY AND GENOMIC MEDICINE Barbiturate screen, urine NEG [facility] DEPARTMENT OF PATHOLOGY AND GENOMIC MEDICINE Benzodiazepine screen, NEG [facility] DEPARTMENT OF urine PATHOLOGY AND GENOMIC MEDICINE Cocaine screen, urine NEG [facility] DEPARTMENT OF PATHOLOGY AND GENOMIC MEDICINE Methadone screen, urine NEG [facility] DEPARTMENT OF PATHOLOGY AND GENOMIC MEDICINE Opiates screen, urine NEG [facility] DEPARTMENT OF PATHOLOGY AND GENOMIC MEDICINE Phencyclidine screen, NEG [facility] DEPARTMENT OF urine PATHOLOGY AND GENOMIC MEDICINE Cannabinoid screen, urine NEG [facility] DEPARTMENT OF Comment: PATHOLOGY AND Drug screen [...] purposes only. Specimen Urine Performing Organization Address City/[facility]/Zipcode Phone Number [facility] DEPARTMENT [place] [address] [place] [address] PATHOLOGY AND GENOMIC MEDICINE after 04/23/2017 Insurance Payer Benefit Subscriber ID Type Phone Address Plan / Group [employer] [facility] [facility] Advance Directives Patient has advance care planning documents, and code status on file. For more i nformation, please contact: Jamey Hanson [address] [place] [address] Date Inactivated Comments Code Status Date Activated [...]
[2018-04-24] MEDS: D5.45%NS/KCL 20MEQ 1,000 ML IV SCH ×2 (06:41→08:52)
[2018-04-24] MEDS: HYDROMORPHONE 2MG/ML 2 MG/ML ML IV PRN ×3 (08:53→20:05)
[2018-04-24] MEDS: ONDANSETRON HCL INJ 2 MG/ML VIAL IV PRN ×3 (08:53→20:05)
[2018-04-24 09:13] LABS: BASOPHILS % 0.4 % (0.0-1.0); EOSINOPHILS # (AUTO) 0.4 (0.0-0.4); EOSINOPHILS % 5.2 % (0.0-6.0); HEMATOCRIT 29.9 % (34.2-44.1); HEMOGLOBIN 9.4 g/dL (12.0-16.0); LYMPHOCYTES # (AUTO) 1.7 (1.0-3.2); LYMPHOCYTES % 24.8 % (18.0-39.1); MEAN CORPUSCULAR HGB CONC 31.4 g/dL (31-35); MEAN CORPUSCULAR VOLUME 73.3 fL (81-99); MONOCYTES # (AUTO) 0.5 (0.2-0.8); MONOCYTES % 7.4 % (4.4-11.3); NEUTROPHILS # (AUTO) 4.2 (2.1-6.9); NEUTROPHILS % 62.1 % (38.7-80.0); PLATELET COUNT 226 x10e3/uL (140-360); RED BLOOD COUNT 4.08 x10e6/uL (3.6-5.1); RED CELL DISTRIBUTION WIDTH 17.1 % (11.7-14.4)
[2018-04-24 09:43] LABS: ALANINE AMINOTRANSFERASE 29 IU/L (0-55); ALBUMIN 3.2 g/dL (3.5-5.0); ALKALINE PHOSPHATASE 94 IU/L (40-150); ANION GAP 12.6 mmol/L (8-16); BLOOD UREA NITROGEN 8 mg/dL (7-26); BUN/CREATININE RATIO 12 (6-25); CALCIUM 8.4 mg/dL (8.4-10.2); CARBON DIOXIDE 21 mmol/L (22-29); CHLORIDE 107 mmol/L (98-107); CREATININE, SERUM 0.66 mg/dL (0.57-1.11); EST GLOMERULAR FILTRATION RATE > 60 ML/MIN (60-); GLUCOSE 98 mg/dL (74-118); POTASSIUM 3.6 mmol/L (3.5-5.1); SODIUM 137 mmol/L (136-145)
[2018-04-24 09:57] VITALS: BP 102/76
[2018-04-24] MEDS ORDERED: ACETAMINOPHEN 1000 MG/100 ML 100 ML IV ONE (10:27)
[2018-04-24] MEDS ORDERED: HYDROMORPHONE 2MG/ML 2 MG/ML ML ONE (10:27)
[2018-04-24] MEDS ORDERED: BUPIVACAINE 0.25%/EPI 30ML SDV INJ ONE (10:45)
[2018-04-24 11:47] VITALS: BP 102/76
[2018-04-24] MEDS ORDERED: PROMETHAZINE HCL (IM) 25 MG/ML VIAL IV PRN (13:30)
[2018-04-24] MEDS ORDERED: FENTANYL CITRATE/PF 100MCG/2 ML INJ ONE ×2 (13:49→19:25)
--- NOTE | 2018-04-24 14:02 | Operative Report ---
DATE OF PROCEDURE: April 24, 2018 PREOPERATIVE DIAGNOSIS: Incarcerated recurrent ventral hernia. POSTOPERATIVE DIAGNOSIS: Incarcerated recurrent ventral hernia. OPERATIONS PERFORMED 1. Exploratory laparotomy. 2. Removal of intra-abdominal mesh. 3. Repair of recurrent ventral hernia with Ultra Pro mesh. PRINT SUPPORT SPECIALIST: ADRIENNE Dominguez. ANESTHESIA: General. COMPLICATIONS: None. ESTIMATED BLOOD LOSS: Minimal. DESCRIPTION OF PROCEDURE: With the patient lying in bed in the supine position under good general endotracheal anesthesia, the abdomen was prepped with Betadine solution and draped in the usual manner. A midline incision was made. It was carried down through the subcutaneous tissue. Immediately, several hernia sacs were encountered above and below the umbilicus. The umbilicus was then from the hernia sac. The fascia was then dissected all the way around the hernia sacs. The hernia sacs were then opened. There was quite a bit of omentum contained. All of the adhesions were taken down and were reduced back to the intra-abdominal cavity. At this point, it became evident the patient had a previous repair with the intra-abdominal mesh. The mesh was all on the right side of the hernia defect with a complete blowout on the left side of the mesh with a large herniation on the left side of the abdominal wall. The mesh was then from all the adhesions. After this was done, there was quite a bit of the mesh that was not incorporated, and all the mesh that was not incorporated was then resected. We did leave a piece on the right side of the abdomen that was well incorporated, and would provide some extra strength for the followup repair. All the hernia sac was similarly removed. We then went ahead and closed the hernia defect primarily in a transverse fashion using interrupted sutures of #1 Ethibond and also #1 running Vicryl. This gave us a satisfactory repair. There was frankly very little tension because of the patient's previous pregnancies. After this was done, a 6 x 6 piece of Ultra Pro mesh was then placed to cover the entire area, and was sutured all the way around with interrupted sutures of 0 Ethibond. This gave us a satisfactory repair without any tension. The whole area was thoroughly irrigated. Perfect hemostasis was ascertained. The umbilicus was then tacked back down to the midline with 2-0 Vicryl. The subcutaneous tissue was approximated with 2-0 Vicryl and the skin was closed with clips. Dressings were applied. The sponge, lap and needle count was correct. Patient tolerated the procedure well, and returned to the recovery room in stable condition. Job#: [id number] [place]VAR[place]
[2018-04-24] MEDS ORDERED: DEXAMETHASONE SOD PHOS INJ 4 MG/ML VIAL ONE (14:53)
[2018-04-24] MEDS ORDERED: LIDOCAINE HCL 2% LOCAL INJ 5 ML SDV VIAL INJ ONE (14:53)
[2018-04-24] MEDS ORDERED: SEVOFLURANE INHAL SOLN 250 ML PEN BTL ONE (14:53)
[2018-04-24] MEDS ORDERED: PROPOFOL IV EMULSION 10 MG/ML 20 ML VIAL ONE (14:53)
[2018-04-24] MEDS ORDERED: ROCURONIUM BROMIDE 10 MG/ML 5ML VIAL ONE (14:53)
[2018-04-24] MEDS ORDERED: ONDANSETRON HCL INJ 2 MG/ML VIAL ONE (14:53)
[2018-04-24] MEDS: SODIUM CHLORIDE 0.9% 1000ML 1,000 ML IV SCH ×2 (16:02→23:18)
[2018-04-24] MEDS: CEFAZOLIN SOD 1 GM/D5W 50ML 50 ML IV SCH ×2 (16:09→23:19)
[2018-04-24 16:17] VITALS: BP 118/73
[2018-04-24] MEDS: MAGNESIUM/ALUMINUM/SIMETHICONE 30 ML UDC PO PRN (17:53)
[2018-04-24] MEDS ORDERED: MIDAZOLAM HCL 2 MG/2 ML VIAL ONE (19:25)
[2018-04-24 20:25] VITALS: BP 109/71
[2018-04-24 23:30] VITALS: BP 99/63
[2018-04-25] MEDS: ONDANSETRON HCL INJ 2 MG/ML VIAL IV PRN ×3 (00:05→08:14)
[2018-04-25] MEDS: HYDROMORPHONE 2MG/ML 2 MG/ML ML IV PRN ×3 (00:05→08:14)
[2018-04-25] MEDS: SODIUM CHLORIDE 0.9% 1000ML 1,000 ML IV SCH ×3 (02:20→10:40)
[2018-04-25 04:00] VITALS: BP 110/56
[2018-04-25 05:44] LABS: BASOPHILS % 0.2 % (0.0-1.0); EOSINOPHILS # (AUTO) 0.1 (0.0-0.4); EOSINOPHILS % 0.9 % (0.0-6.0); HEMATOCRIT 29.3 % (34.2-44.1); HEMOGLOBIN 9.1 g/dL (12.0-16.0); LYMPHOCYTES # (AUTO) 1.2 (1.0-3.2); LYMPHOCYTES % 8.6 % (18.0-39.1); MEAN CORPUSCULAR HEMOGLOBIN 22.8 pg (28-32); MEAN CORPUSCULAR HGB CONC 31.1 g/dL (31-35); MEAN CORPUSCULAR VOLUME 73.3 fL (81-99); MONOCYTES # (AUTO) 0.5 (0.2-0.8); MONOCYTES % 3.5 % (4.4-11.3); NEUTROPHILS # (AUTO) 11.9 (2.1-6.9); NEUTROPHILS % 86.3 % (38.7-80.0); PLATELET COUNT 251 x10e3/uL (140-360); RED CELL DISTRIBUTION WIDTH 17.2 % (11.7-14.4)
[2018-04-25 06:04] LABS: ANION GAP 11.5 mmol/L (8-16); BLOOD UREA NITROGEN 6 mg/dL (7-26); BUN/CREATININE RATIO 10 (6-25); CALCIUM 8.1 mg/dL (8.4-10.2); CARBON DIOXIDE 24 mmol/L (22-29); CHLORIDE 105 mmol/L (98-107); CREATININE, SERUM 0.61 mg/dL (0.57-1.11); EST GLOMERULAR FILTRATION RATE > 60 ML/MIN (60-); GLUCOSE 117 mg/dL (74-118); POTASSIUM 3.5 mmol/L (3.5-5.1); SODIUM 137 mmol/L (136-145)
[2018-04-25 07:28] VITALS: BP 98/57
[2018-04-25 08:11] VITALS: BP 98/57
[2018-04-25] MEDS ORDERED: PANTOPRAZOLE 40 MG 10ML VIAL IV SCH (09:00)
[2018-04-25] MEDS ORDERED: LEVOFLOXACIN 500 MG TAB PO SCH (09:45)
[2018-04-25] MEDS: MAGNESIUM/ALUMINUM/SIMETHICONE 30 ML UDC PO PRN (10:36)
[2018-04-25] MEDS: HYDROCODONE/APAP 7.5MG-325MG 1 EA TAB PO PRN ×2 (10:40→14:34)
[2018-04-25 11:52] VITALS: BP 101/57
[2018-04-25] MEDS ORDERED: NORCO 7.5-3251 EACH PO (13:25)
[2018-04-25] MEDS ORDERED: KEFLEX500 MG PO (13:25)
== END 2018-04-25 14:37 | disposition home or self-care (01) | DRG 355 ==
LOC: FSED 23:31 → ERHOLD 04-24 02:35 → MED/SURG2 04-24 08:07 → MED/SURG 04-24 14:33
PROVIDERS: ADMIT Surgery; ATTEND Surgery
PROC: 0WPF0JZ Removal of Synthetic Substitute from Abdominal Wall, Open Approach (ICD-10-PCS; 2018-04-24)
PROC: 0WUF0JZ Supplement Abdominal Wall with Synthetic Substitute, Open Approach (ICD-10-PCS; principal; 2018-04-24 10:57)
DX: K43.0 Incisional hernia with obstruction, without gangrene (principal); K21.9 Gastro-esophageal reflux disease without esophagitis; F17.200 Nicotine dependence, unspecified, uncomplicated; Z28.21 Immunization not carried out because of patient refusal; E87.6 Hypokalemia; Z88.5 Allergy status to narcotic agent
CPT/HCPCS: 36415; 74177; 80048; 80053; 80076; 81003; 81025; 83605; 85025; 87086; 87186; 99284; C1781; J0690; J1100; J2001; J2250; J2405; J7030